=== PATIENT | male | born 1985 | race Caucasian/White ===

== ENCOUNTER 2019-12-07 17:09 | Emergency (ER) | payer OTHER, SELFPAY ==
--- NOTE | ~2019-12-07 | XR_ITS ---
EXAMINATION: XR foot RT min 3V EXAM DATE: 12/07/2019 18:18 INDICATION: Initial encounter following injury, with pain of the right foot, great toe. TECHNIQUE: Right foot dorsoplantar, lateral and oblique projections obtained and reviewed. There is no prior study for comparison. FINDINGS: Right metatarsal bones unremarkable. There are no acute fractures or dislocations identifi ed. There is no subcutaneous gas. The soft tissue is unremarkable. There are no radiopaque foreig n bodies. IMPRESSION: 1. XR foot RT min 3V exam without acute osseous findings. Reviewed, dictated and finalized at location A.
--- NOTE | ~2019-12-07 | XR_ITS ---
EXAMINATION: XR foot LT min 3V EXAM DATE: 12/07/2019 18:17 INDICATION: Initial encounter following injury, with pain of the left foot. TECHNIQUE: Left foot dorsoplantar, lateral and oblique projections obtained and reviewed. There is n o prior study for comparison. FINDINGS: Left metatarsal bones unremarkable. There are no acute fractures or dislocations identifi ed. There is no subcutaneous gas. The soft tissue is unremarkable. There are no radiopaque foreig n bodies. IMPRESSION: 1. XR foot LT min 3V exam without acute osseous findings. Reviewed, dictated and finalized at location A.
[2019-12-07 17:26] VITALS: BP 127/68; PULSE 100; RESP 16; TEMP 37.1; O2SAT 100
[2019-12-07 18:01] LABS: Glucose Point of Care 75 (65-105)
[2019-12-07 18:01] LABS: Glucose Point of Care 41 (65-105)
--- NOTE | 2019-12-07 19:03 | PC.NURSE ---
pt has had 3 pepsis, turkey sandwich and multiple bags of chips since arrival.
[2019-12-07 20:05] VITALS: BP 130/72; PULSE 98; RESP 18; O2SAT 100
[2019-12-07 20:05] LABS: Glucose Point of Care 174 (65-105)
--- NOTE | 2019-12-07 21:27 | ED.LOWEXIN ---
HPI - Extremity Injury (Lower) General Chief Complaint: Extremity Injury, Lower Stated Complaint: left foot injury Time Seen by Provider: 12/07/19 17:28 Source: patient Mode of arrival: ambulatory Limitations: no limitations History of Present Illness HPI Narrative: This is a 33 year old male that presents to the ER for bilateral foot pain x 2 days. Reports he had a large log fall on both of the feet. Reports since he has had swelling and pain in the feet. Also reports pain and bruising of the right first toenail. Also reports he thinks his blood sugar may be low. He took his insulin today and has not eaten anything in a while. Denies fever, decreased ROM or numbness. Related Data Allergies Allergy/AdvReac Type Severity Reaction Status Date / Time ibuprofen Allergy Severe Rash Verified 12/07/19 19:04 Penicillins Allergy Severe Hives Verified 12/07/19 19:03 Review of Systems Review of Systems: Narrative: CONSTITUTIONAL: Denies fever SKIN: Reports redness MUSCULOSKELETAL: Reports joint pain, and myalgia. NEUROLOGIC: Denies numbness All systems reviewed & are unremarkable except as noted in HPI and below PMFSH Past Medical History Medical History (Updated 12/07/19 @ 21:39 by Felecia Branch PA-C) History of diabetes mellitus Social History Social History (Updated 12/07/19 @ 21:32 by Felecia Branch PA-C) Substance use: never Exam Narrative: Exam Narrative: GENERAL: Well-appearing, well-nourished, and in no acute distress. HEAD: Normocephalic, atraumatic. EYES: EOMI. EXTREMITIES: Normal range of motion. Mild edema to dorsal surface of bilateral feet. Right great toe with mild subungual hematoma with mild redness to the lateral nail fold. Normal DP pulses. Normal sensation SKIN: Warm, dry, no rash. NEURO: No focal deficits. Alert and oriented x3. PSYCH: Normal mood and affect Course Vital Signs Vital signs: Vital Signs Temperature 98.7 F 12/07/19 17:26 Pulse Rate 100 12/07/19 17:26 Respiratory Rate 16 12/07/19 17:26 Blood Pressure 127/68 12/07/19 17:26 Pulse Oximetry 100 12/07/19 17:26 Temperature 98.7 F 12/07/19 17:26 Pulse Rate 98 12/07/19 20:05 Respiratory Rate 18 12/07/19 20:05 Blood Pressure 130/72 12/07/19 20:05 Pulse Oximetry 100 12/07/19 20:05 Procedures Abscess I/D foot: Date of Incision: 12/07/19 Time of Incision: 21:38 Side (if applicable): right Local Anesthetic: none (patient refused) Technique: incised with #11 blade I&D Results: Blood MDM - Extremity Injury (Lower) MDM Narrative Medical decision making narrative: Patient presents to the emergency department for bilateral foot pain after an injury 2 days ago. Bilateral foot x-rays are without acute osseous findings. Will be given postop shoes and crutches for comfort. Patient also reported he was feeling like his blood sugar was low, he had not had anything to eat. Initial blood glucose was 41, patient was fed with improvement. Most recent blood sugar 174. Patient also had a subungual hematoma of the first toe on the right foot. Mild amount of redness to the area. Attempted at incision with only blood resulting, no pus. Patient instructed to do warm soapy soaks and will be started on oral antibiotics. He is stable and felt appropriate for further outpatient evaluation. He was given warnings to return to the ER Lab Data Attestation: I reviewed the patient's lab results. Labs: Lab Results 12/07/19 12/07/19 12/07/19 Range/Units 17:23 18:00 20:03 POC Capillary Glucose 41 L* 75 174 H (65-105) mg/dl Imaging Data Radiologist's impression: ITS Impressions Foot X-Ray 12/07/19 18:26 IMPRESSION: 1. XR foot LT min 3V exam without acute osseous findings. Foot X-Ray 12/07/19 18:27 IMPRESSION: 1. XR foot RT min 3V exam without acute osseous findings. Critical Care Time Critical Care Time Critical Care Time:
[2019-12-07 21:57] VITALS: BP 128/71; PULSE 99; RESP 23; O2SAT 100
== END 2019-12-07 21:58 | disposition home or self-care (01) ==
PROVIDERS: Emergency Provider Emergency Medicine
DX: L03.031 Cellulitis of right toe (principal); S90.211A Contusion of right great toe with damage to nail, initial encounter; M79.672 Pain in left foot; E11.9 Type 2 diabetes mellitus without complications; W20.8XXA Other cause of strike by thrown, projected or falling object, initial encounter
CPT/HCPCS: 73630; 82948; 99284; A9270

== ENCOUNTER 2019-12-10 15:15 | Emergency (ER) | payer OTHER, SELFPAY ==
[2019-12-10 15:33] VITALS: BP 137/63; PULSE 69; RESP 14; TEMP 36.8; O2SAT 99
[2019-12-10 15:39] LABS: Glucose Point of Care 306 (65-105)
--- NOTE | 2019-12-10 15:53 | ED.LOWEXIN ---
HPI - Extremity Injury (Lower) General Chief Complaint: Extremity Injury, Lower Stated Complaint: feet pain,poison bobbi Time Seen by Provider: 12/10/19 15:54 Source: patient Mode of arrival: wheelchair Limitations: no limitations History of Present Illness HPI Narrative: 33-year-old man with type 1 diabetes comes in today complaining of redness and swelling of his feet bilaterally, itching and rash on his feet and hands, and pain in his right foot. Patient states that about 5 days ago he was cutting wood for a Bon fire and the log rolled over on his feet. He states that he was seen 2 days later and the emergency department where they gave him antibiotics after x-ray in his legs. he has since had some bloody drainage from under his right great toenail. The rash arose afterwards. He thinks he might have gotten into some poison bobbi. He denies fever, nausea, vomiting, trouble breathing, lightheadedness or chest pain. MD complaint: foot injury Onset (ago): day(s) (5) Injury: Right: foot Type of Injury: blunt Place: home Severity: moderate Relieving factors: nothing Exacerbating factors: weight bearing, movement and palpation Context: direct blow Associated symptoms: swelling and able to partially bear weight Related Data Home Medications Medication Instructions Recorded Confirmed insulin lispro [Humalog U-100 See Rx Instructions .ROUTE .COMPLEX 12/10/19 12/10/19 Insulin] Allergies Allergy/AdvReac Type Severity Reaction Status Date / Time ibuprofen Allergy Severe Rash Verified 12/07/19 19:04 Penicillins Allergy Severe Hives Verified 12/07/19 19:03 codeine Allergy Unknown Unknown Verified 12/10/19 15:46 Review of Systems Constitutional: Constitutional: Denies chills, Denies fever(s) and Denies weakness Eyes: Eyes: Denies change in vision and Denies photophobia ENT: Denies dysphagia, Denies nasal congestion and Denies sore throat Cardiovascular: Cardiovascular: Denies chest pain and Denies radiating jaw, neck or arm pain Respiratory: Respiratory: Denies cough, Denies dyspnea and Denies wheezing Gastrointestinal: Gastrointestinal: Denies abdominal pain, Denies diarrhea, Denies nausea and Denies vomiting Genitourinary: Genitourinary: Denies dysuria and Denies urinary frequency Musculoskeletal: Musculoskeletal: Reports as per HPI, Denies back pain, Reports arthralgias and Reports joint swelling Integumentary/Breasts: Skin/Breast: Reports as per HPI, Reports pruritus and Reports rash Neurologic: Denies vertigo, Denies dizziness and Denies syncope Hematologic/Lymphatic: Hematologic/Lymphatic: Denies easy bleeding and Denies easy bruising Allergic/Immunologic: Allergic/Immunologic: Denies lip swelling and Denies wheezing PMFSH Past Medical History Medical History History of diabetes mellitus Social History Social History Smoking status: Never smoker Alcohol intake: never Substance use: never Living arrangements: with family Exam Const: General: healthy appearing and alert Orientation/consciousness: patient oriented x3 Limitations: no limitations Other: gndf-io-vaouliao acute distress. HENMT: Head: normal to inspection Face and sinus: normal facial exam Mouth: Yes moist mucous membranes Throat: posterior oropharynx normal Eyes: Conjunctivae: conjunctivae normal Pupils: Equal, round and reactive pupils present EOM: EOMs intact bilaterally Neck: Neck: normal visual inspection and no lymphadenopathy Resp: Effort & Inspection: normal respiratory effort and not labored Auscultation: clear to auscultation bilaterally, no rales, no rhonchi and no wheezes Cardio: Rate: regular rate Rhythm: regular rhythm Heart sounds: no murmurs GI: Inspection: non-distended GI Palp: Yes Soft to palpation and No Tenderness to palpation present (GI) Skin: General skin exam: normal color Other:
[2019-12-10 16:39] LABS: Basophils Absolute Auto 0.04 K/mm3 (0.00-0.10); Basophils Percent Auto 0.6 % (0.0-1.0); Eosinophils Absolute Auto 0.29 K/mm3 (0.02-0.50); Eosinophils Percent Auto 4.6 % (1.0-6.0); Hematocrit 35.7 % (40.0-54.0); Hemoglobin 11.9 g/dL (14.0-18.0); Immature Granulocyte Absolute 0.01 K/mm3 (0.00-0.00); Immature Granulocyte Percent A 0.2 % (0.0-0.0); Lymphocytes Absolute Auto 1.74 K/mm3 (1.10-4.50); Lymphocytes Percent Auto 27.6 % (18.0-42.0); Mean Corpuscular HGB Conc 33.3 g/dL (32.0-36.0); Mean Corpuscular Hemoglobin 29.7 pg (27.0-31.0); Mean Platelet Volume 10.5 fl (8.7-11.0); Monocytes Absolute Auto 0.46 K/mm3 (0.10-0.90); Monocytes Percent Auto 7.3 % (2.0-11.0); Neutrophils Absolute Auto 3.8 K/mm3 (1.7-7.2); Neutrophils Percent Auto 59.7 % (50.0-70.0); Platelet Count Result 299 K/mm3 (150-420); Red Blood Count 4.01 M/mm3 (4.70-6.10); White Blood Count 6.3 K/mm3 (4.8-10.8)
[2019-12-10] MEDS: MORPHINE SULFATE 4 MG/ML INJ IV PUSH (16:40)
[2019-12-10] MEDS: ONDANSETRON INJ 4 MG/2 ML VIAL IV PUSH (16:40)
[2019-12-10] MEDS: SODIUM CHLORIDE 0.9% IV 1,000 ML 999 ML IV CONT (16:40)
[2019-12-10 16:53] LABS: Alanine Aminotransferase 22 U/L (16-63); Albumin Level 3.2 g/dL (3.4-5.0); Alkaline Phosphatase 81 U/L (46-116); Anion Gap 6 mmol/L (8-16); Aspartate Amino Transferase 12 U/L (15-37); Bilirubin,Total 0.2 mg/dL (0.00-1.00); Blood Urea Nitrogen 9 mg/dL (7-18); CRP 1.8 mg/dL (0.0-0.9); Calcium 8.3 mg/dL (8.5-10.1); Carbon Dioxide 28 mmol/L (21-32); Chloride 107 mmol/L (98-108); Estimated CRCL calculation 114 ml/min; Estimated Glomerular Filt Rate > 60; Glucose 142 mg/dL (70-99); Osmolality Calculated 292 mOsm/kg (285-295); Potassium 3.5 mmol/L (3.5-5.1); Sodium 141 mmol/L (136-145); Total Protein 6.5 g/dL (6.4-8.2)
[2019-12-10 17:03] VITALS: BP 112/58; PULSE 62; RESP 16; O2SAT 96
[2019-12-10 17:07] LABS: Lactic Acid Reflex 2.1 mmol/L (0.4-2.0)
[2019-12-10 17:25] LABS: Partial Thromboplastin Time 29.8 SEC (22.3-31.6)
[2019-12-10] MEDS: predniSONE 20 MG TABLET 60 MG PO (17:55)
--- NOTE | 2019-12-10 18:06 | PC.NURSE ---
Pt requesting medications be sent to [facility] because he will not have a ride tomorrow to get medications filled.
[2019-12-10 19:35] LABS: Reflex Lactic Acid Yes or No Add Lactic
== END 2019-12-10 18:52 | disposition home or self-care (01) ==
PROVIDERS: Emergency Provider Emergency Medicine
DX: S90.221A Contusion of right lesser toe(s) with damage to nail, initial encounter (principal); L25.5 Unspecified contact dermatitis due to plants, except food; W22.8XXA Striking against or struck by other objects, initial encounter
CPT/HCPCS: 36415; 80053; 83605; 85025; 85610; 85730; 86140; 87040; 96361; 96374; 96375; 99283; 99284; J2270; J2405; J7030; J7512

== ENCOUNTER 2020-11-07 19:06 | Emergency (ER) | payer OTHER, SELFPAY ==
[2020-11-07 20:15] VITALS: PULSE 90; RESP 18; TEMP 37.7
[2020-11-07 20:37] LABS: Basophils Absolute Auto 0.11 K/mm3 (0.00-0.10); Basophils Percent Auto 0.9 % (0.0-1.0); Eosinophils Absolute Auto 0.23 K/mm3 (0.02-0.50); Hematocrit 45.5 % (40.0-54.0); Hemoglobin 15.1 g/dL (14.0-18.0); Immature Granulocyte Absolute 0.04 K/mm3 (0.00-0.00); Immature Granulocyte Percent A 0.3 % (0.0-0.0); Lymphocytes Absolute Auto 2.64 K/mm3 (1.10-4.50); Lymphocytes Percent Auto 22.5 % (18.0-42.0); Mean Corpuscular HGB Conc 33.2 g/dL (32.0-36.0); Mean Corpuscular Hemoglobin 29.8 pg (27.0-31.0); Mean Corpuscular Volume 89.7 fL (78.0-102.0); Mean Platelet Volume 10.2 fl (8.7-11.0); Monocytes Absolute Auto 0.76 K/mm3 (0.10-0.90); Monocytes Percent Auto 6.5 % (2.0-11.0); Neutrophils Percent Auto 67.8 % (50.0-70.0); Platelet Count Result 435 K/mm3 (150-420); Red Blood Count 5.07 M/mm3 (4.70-6.10); Red Cell Distribution Width 12.1 % (11.6-14.4); White Blood Count 11.8 K/mm3 (4.8-10.8)
[2020-11-07 20:49] LABS: Alanine Aminotransferase 25 U/L (16-63); Albumin Level 4.1 g/dL (3.4-5.0); Alkaline Phosphatase 115 U/L (46-116); Anion Gap 12 mmol/L (8-16); Aspartate Amino Transferase 10 U/L (15-37); Bilirubin,Total 0.2 mg/dL (0.00-1.00); Blood Urea Nitrogen 14 mg/dL (7-18); Calcium 9.5 mg/dL (8.5-10.1); Carbon Dioxide 26 mmol/L (21-32); Chloride 104 mmol/L (98-108); Estimated CRCL calculation 77 ml/min; Estimated Glomerular Filt Rate > 60; Glucose 181 mg/dL (70-99); Osmolality Calculated 299 mOsm/kg (285-295); Potassium 4.2 mmol/L (3.5-5.1); Sodium 142 mmol/L (136-145); Total Protein 8.2 g/dL (6.4-8.2)
[2020-11-07 22:00] VITALS: BP 133/74; PULSE 80; RESP 20; TEMP 36.2; O2SAT 98
--- NOTE | 2020-11-07 22:07 | PC.NURSE ---
Pt brought from [facility] to ER Rm 1, VSS. ERP in to speak c pt.
[2020-11-07] MEDS: cefTRIAXone 1 GM VIAL IM (22:15)
[2020-11-07] MEDS: HYDROcodone/acetaminophen (*CRX) 5-325 MG TABLET 1 TAB PO (22:15)
--- NOTE | 2020-11-07 22:15 | ED.WOUNDLAC ---
HPI - Wound/Laceration General Chief Complaint: Wound/Laceration Stated Complaint: possible spider bite Time Seen by Provider: 11/07/20 20:30 Source: patient and RN notes reviewed Mode of arrival: ambulatory Limitations: no limitations History of Present Illness Onset (ago): day(s) (5) Extremity Location: Right: forearm Place: home Patient tetanus UTD: Yes Context: accidental Associated symptoms: pain Treatments prior to arrival: bandage and other (Bactrim DS x 5 days.) Related Data Home Medications Medication Instructions Recorded Confirmed insulin lispro [Humalog U-100 See Rx Instructions .ROUTE .COMPLEX 12/10/19 11/07/20 Insulin] albuterol sulfate 2 puff INHALATION PRN 11/07/20 11/07/20 atorvastatin 10 mg PO DAILY 11/07/20 11/07/20 Allergies Allergy/AdvReac Type Severity Reaction Status Date / Time ibuprofen Allergy Severe Rash Verified 12/07/19 19:04 Penicillins Allergy Severe Hives Verified 12/07/19 19:03 codeine Allergy Unknown Unknown Verified 12/10/19 15:46 Review of Systems Review of Systems: ROS unobtainable: Yes unobtainable due to endotracheal tube Constitutional: Constitutional: Reports as per HPI and Reports no additional constitutional complaints Eyes: Eyes: Reports as per HPI and Reports no additional eye complaints ENT: Reports system reviewed and no additional complaints, except as documented and Reports as per HPI Cardiovascular: Cardiovascular: Reports as per HPI and Reports no additional cardiovascular complaints Respiratory: Respiratory: Reports as per HPI and Reports no additional respiratory complaints Gastrointestinal: Gastrointestinal: Reports as per HPI and Reports no additional gastrointestinal complaints Genitourinary: Genitourinary: Reports no additional male genitourinary complaints and Reports as per HPI Musculoskeletal: Musculoskeletal: Reports no additional musculoskeletal complaints and Reports as per HPI Comments: spider bite of medial right forearm Integumentary/Breasts: Skin/Breast: Reports system reviewed and no additional complaints, except as docu and Reports as per HPI Neurologic: Reports system reviewed and no additional complaints, except as documented and Reports as per HPI Psychiatric: Psychiatric: Reports no additional psychiatric complaints and Reports as per HPI Endocrine: Endocrine: Reports no additional endocrine complaints and Reports as per HPI Hematologic/Lymphatic: Hematologic/Lymphatic: Reports no additional hematologic/lymphatic complaints and Reports as per HPI Allergic/Immunologic: Allergic/Immunologic: Reports no additional allergic/immunologic complaints and Reports as per HPI PMFSH Past Medical History Medical History Cellulitis History of diabetes mellitus Social History Social History Smoking status: Never smoker Alcohol intake: never Substance use: never Exam Const: General: healthy appearing, no acute distress and alert Orientation/consciousness: patient oriented x3 HENMT: Head: normal to inspection Ears: external ears normal and TM's normal bilaterally General nose exam: Normal external nose present and Normal nares present Eyes: Conjunctivae: conjunctivae normal Pupils: Equal, round and reactive pupils present EOM: EOMs intact bilaterally Neck: Neck: normal visual inspection and no lymphadenopathy Chest: Chest palpation & inspection: normal inspection of the chest Resp: Effort & Inspection: normal respiratory effort Auscultation: clear to auscultation bilaterally Cardio: Rate: regular rate Rhythm: regular rhythm GI: GI Palp: Yes Soft to palpation Percussion: Yes normal to percussion Auscultation: normal bowel sounds Back/Spine/Pelvis: Back: no CVA tenderness Skin: General skin exam: normal color Neuro: General: patient oriented x3, moves all extremities, no meningeal signs and CN's II-XI in
[2020-11-07] MEDS: LIDOCAINE HCL 1% LOCAL INJ 20 ML VIAL (22:28)
[2020-11-07 22:33] VITALS: BP 122/74; PULSE 87; RESP 20; TEMP 36.8; O2SAT 99
== END 2020-11-07 22:34 | disposition home or self-care (01) ==
PROVIDERS: Emergency Provider Emergency Medicine
DX: L98.9 Disorder of the skin and subcutaneous tissue, unspecified (principal); L03.90 Cellulitis, unspecified; W57.XXXA Bitten or stung by nonvenomous insect and other nonvenomous arthropods, initial encounter
CPT/HCPCS: 36415; 80053; 85025; 87040; 96372; 99283; A9270; J0696

== ENCOUNTER 2021-02-08 08:32 | Emergency (ER) | payer OTHER, SELFPAY ==
[2021-02-08 08:45] VITALS: BP 117/98; PULSE 86; RESP 18; TEMP 37.1; O2SAT 98
[2021-02-08] MEDS: traMADol HCL (*CRX) 50 MG TABLET PO (09:47)
[2021-02-08] MEDS: LIDOCAINE HCL 1% LOCAL INJ 20 ML VIAL (09:50)
--- NOTE | 2021-02-08 10:11 | ED.EXTPRO ---
HPI - Extremity Problem General Chief complaint: Extremity Problem,Nontraumatic Stated complaint: BITE ON FINGER NEED RING CUT OFF Source: patient Mode of arrival: ambulatory History of Present Illness HPI Narrative: this is a 35-year-old male presents with some swollen right ring finger, after apparent spider bite with some redness has a ring on the finger that is the patient is unable to remove, and patient is up-to-date with his tetanus vaccine, the area of the right ring finger is swollen painful and tender to touch and unable to remove the ring on his own. Currently no fever or chills no drainage from the wound site. Complaint: extremity pain Onset (ago): hour(s) Pain Consistency: constant Location: right and upper extremity Severity scale (1-10): 8 Quality: aching Radiation: none Relieving factors: cold therapy and immobilization Exacerbating factors: range of motion Related Data Home Medications Medication Instructions Recorded Confirmed insulin lispro [Humalog U-100 See Rx Instructions .ROUTE .COMPLEX 12/10/19 11/07/20 Insulin] albuterol sulfate 2 puff INHALATION PRN 11/07/20 11/07/20 atorvastatin 10 mg PO DAILY 11/07/20 11/07/20 Allergies Allergy/AdvReac Type Severity Reaction Status Date / Time ibuprofen Allergy Severe Rash Verified 12/07/19 19:04 Penicillins Allergy Severe Hives Verified 12/07/19 19:03 codeine Allergy Unknown Unknown Verified 12/10/19 15:46 Review of Systems Review of Systems: All systems reviewed & are unremarkable except as noted in HPI and below PMFSH Past Medical History Medical History Cellulitis History of diabetes mellitus Social History Social History Smoking status: Never smoker Alcohol intake: never Substance use: never Exam Const: General: no acute distress and alert Orientation/consciousness: patient oriented x3 HENMT: Head: normal to inspection Eyes: Conjunctivae: conjunctivae normal Pupils: Equal, round and reactive pupils present Neck: Neck: normal visual inspection, no lymphadenopathy and no meningeal signs Chest: Chest palpation & inspection: normal inspection of the chest Resp: Effort & Inspection: normal respiratory effort Auscultation: clear to auscultation bilaterally Cardio: Rate: regular rate Rhythm: regular rhythm GI: GI Palp: Yes Soft to palpation Percussion: Yes normal to percussion Back/Spine/Pelvis: Back: no CVA tenderness Skin: Other: Right ring finger swollen and attempted to remove her ring on unable to do so manually. Neuro: General: patient oriented x3 Extrem: General: normal to inspection and no pedal edema Psych: Mental Status: mental status grossly normal Course Course Emergency Course: Used a ring cutter to remove to remove a ring from his right finger eventually cut through, and was able to remove the the ring from his finger, the area is swollen, we used a nerve block to numb the area ice to affected area the patient did receive p.o. tramadol. With a spider bite and swollen finger the patient is up-to-date with his tetanus, but will prescribe Bactrim p.o. that will be sent to his pharmacy. The area was tender and swollen the patient tolerated the procedure but did have quite a bit of discomfort and pain while trying to remove the the ring from his finger. Vital Signs Vital signs: Vital Signs Temperature 37.1 C 02/08/21 08:45 Pulse Rate 86 02/08/21 08:45 Respiratory Rate 18 02/08/21 08:45 Blood Pressure 117/98 H 02/08/21 08:45 Pulse Oximetry 98 02/08/21 08:45 Temperature 37.1 C 02/08/21 08:45 Pulse Rate 86 02/08/21 08:45 Respiratory Rate 18 02/08/21 08:45 Blood Pressure 117/98 H 02/08/21 08:45 Pulse Oximetry 98 02/08/21 08:45 Procedures Foreign Body Removal Foreign Body #1: Foreign Body Removal Date: 02/08/21 Foreign Body Removal Time:
== END 2021-02-08 10:26 | disposition home or self-care (01) ==
PROVIDERS: Emergency Provider Emergency Medicine
DX: L03.011 Cellulitis of right finger (principal)
CPT/HCPCS: 99283; A9270

== ENCOUNTER 2021-03-06 20:28 | Emergency (ER) | payer OTHER, SELFPAY ==
--- NOTE | ~2021-03-06 | XR_ITS ---
EXAMINATION: XR chest 1V portable EXAM DATE: 03/06/2021 21:59 INDICATION: Cough, sternal chest pain. History hypertension. TECHNIQUE: Frontal and lateral projections of the chest obtained and reviewed. Comparison is made to prior examination from 08/21/2018. FINDINGS: Right-sided chondral cartilage calcification. The lungs are clear. There are no pleural e ffusions. The cardiomediastinal silhouette is within normal limits. There is no pneumothorax suspec talia. The bones and soft tissues are unremarkable. IMPRESSION: No acute cardiopulmonary findings. Reviewed, dictated and finalized at location G. [employer]ICE
[2021-03-06 20:32] VITALS: BP 131/84; PULSE 97; RESP 16; TEMP 36.4; O2SAT 98
--- NOTE | 2021-03-06 21:12 | ED.RECABL ---
HPI - Recheck/Abnormal Lab/Rx General Chief Complaint: Recheck/Abnormal Lab/Rx Stated Complaint: elevated blood sugar 311 Time Seen by Provider: 03/06/21 21:12 Source: patient Mode of arrival: ambulatory Limitations: no limitations History of Present Illness HPI narrative: The patient is a 35 yo male with a history of TYpe I DM, Asthma, HTN, migraine headache, presenting for evaluation of elevated glucose and recent migraine headache which began yesterday. Pt states yesterday had a headache which which was frontal without thunderclap sensation. No neck pain vision changes, focal weakness or numbness. Pt has been nauseated and vomiting today. Pt with neurologist that manages his migraine headaches, but denies taking any prophylactic migraine medications and states this seems similar to previous episodes of migraine headaches. Pt denies current severe pain. Pt denies neck pain. Patient reports his glucose was elevated today, in the 300s. Reports he does use his insulin when he is supposed to. Reports he is not on any long acting insulin. States he used 1 unit of insulin per 15 g of carbohydrate. Pt reports chills, but denies fever. He reports cough as well. Pt son is recent sick contact. He is not vaccinated for COVID. No known history of COVID infection. Denies dyspnea or chest pain. Patient reports spider bites all over his entire body and now with left knee pain and swelling. Pt reports he had some draining from his left knee. Patient was started on Clindamycin for this by his PCP. Pt denies redness or swelling. It is mildly tender but he has been ambulatory without difficulty. No difficulty with bending this extremity. Related Data Home Medications Medication Instructions Recorded Confirmed insulin lispro [Humalog U-100 See Rx Instructions .ROUTE .COMPLEX 12/10/19 11/07/20 Insulin] albuterol sulfate 2 puff INHALATION PRN 11/07/20 11/07/20 atorvastatin 10 mg PO DAILY 11/07/20 11/07/20 Allergies Allergy/AdvReac Type Severity Reaction Status Date / Time ibuprofen Allergy Severe Rash Verified 12/07/19 19:04 Penicillins Allergy Severe Hives Verified 12/07/19 19:03 codeine Allergy Unknown Unknown Verified 12/10/19 15:46 Review of Systems Review of Systems: CONSTITUTIONAL: Denies fever,reports chills without diaphoresis EYES: Denies visual changes, redness, or discharge. ENT:Reports rhinorrhea and congestion CARDIOVASCULAR: Denies chest pain, palpitations, or edema. RESPIRATORY: Reports cough without dyspnea GASTROINTESTINAL: Denies abdominal pain, pt has been nauseated with three episodes of vomiting GENITOURINARY: Denies dysuria or hematuria. SKIN: Denies rash or itching. MUSCULOSKELETAL: Denies back pain, reports mild left knee pain, report healing wound NEUROLOGIC:Reports mild headache, without focal numbness, or weakness. He does report peripheral neuropathy in his hands which has been present for 16 years. FORMERLY [facility], [facility] Past Medical History Medical History Cellulitis History of diabetes mellitus Social History Social History Smoking status: Never smoker Alcohol intake: never Substance use: never Exam Narrative: GENERAL: Awake, alert, conversant HEAD: Normocephalic, atraumatic. EYES: PERRLA and EOMI. ENT: Nares clear, no rhinorrhea or epistaxis. Mucous membranes moist. NECK: Supple. CHEST: No respiratory distress, breathing even and non labored HEART: Regular rate, sinus rhythm ABDOMEN:Non distended, non tender EXTREMITIES: Normal range of motion. No edema. Abrasion over left knee. Intact flexion and extension. No pain with movement. No edema or induration. SKIN: Warm, dry, no rash. NEURO:No focal deficits. Alert and oriented x3. Finger to nose intact bilaterally. EOMs intact without nystagmus. No facial droop/asymmetry noted bilaterally. Grimace intact. Intact sensation in face. Hearing intact bila
--- NOTE | 2021-03-06 21:13 | PC.NURSE ---
per ems crew, pt has insulin for elevated blood sugar but refuses to take it stating that he doesn't know when his next meal will be and doesn't want to bottom out
[2021-03-06 22:02] LABS: Glucose Point of Care 404 mg/dl (65-105)
== END 2021-03-06 22:38 | disposition home or self-care (01) ==
LOC: ANHED 21:32
PROVIDERS: Emergency Provider Emergency Medicine
DX: E10.65 Type 1 diabetes mellitus with hyperglycemia (principal); J45.909 Unspecified asthma, uncomplicated; I10 Essential (primary) hypertension; Z79.4 Long term (current) use of insulin
CPT/HCPCS: 71045; 82948; 99283

== ENCOUNTER 2021-03-09 11:26 | Emergency (ER) | payer OTHER, SELFPAY ==
--- NOTE | 2021-03-09 11:35 | PC.NURSE ---
pt left from ems cot. refuses treatment. states he is better and does not need to be seen
== END 2021-03-09 11:28 | disposition left against medical advice (07) ==
PROVIDERS: Emergency Provider Emergency Medicine
DX: Z04.9 Encounter for examination and observation for unspecified reason (principal)
CPT/HCPCS: 99199

== ENCOUNTER 2021-05-28 15:21 | Emergency (ER) | payer OTHER, SELFPAY ==
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
[2021-05-28 15:42] VITALS: BP 150/83; PULSE 85; RESP 16; TEMP 36.3; O2SAT 97
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
[2021-05-28] MEDS: KETOROLAC (*BKC) 60 MG/2 ML VIAL IM (16:00)
[2021-05-28 16:33] VITALS: BP 134/77; PULSE 97; RESP 16; TEMP 36.9; O2SAT 97
== END 2021-05-28 16:36 | disposition home or self-care (01) ==
PROVIDERS: Emergency Provider Emergency Medicine
DX: S46.011A Strain of muscle(s) and tendon(s) of the rotator cuff of right shoulder, initial encounter (principal); V89.2XXA Person injured in unspecified motor-vehicle accident, traffic, initial encounter
CPT/HCPCS: 73030; 96372; 99283; J1885

== ENCOUNTER 2021-06-03 02:59 | Emergency (ER) | payer SELFPAY ==
[2021-06-03 03:02] VITALS: BP 144/88; PULSE 107; RESP 16; TEMP 36.6; O2SAT 100
--- NOTE | 2021-06-03 03:04 | ED.SKABFB ---
HPI - Skin/Abscess/Foreign Bdy General Chief complaint: Skin/Abscess/Foreign Body Stated complaint: pain Time Seen by Provider: 06/03/21 03:04 Source: patient Mode of arrival: ambulatory Limitations: no limitations History of Present Illness HPI narrative: 35-year-old man with a history of diabetes comes in today complaining of pain and swelling and his perianal area where he has had recurrent abscesses. Patient states that the pain is on the right. He has had no drainage, fever, vomiting or abdominal pain. He has had it lanced several times before. complaint: abscess/boil Onset (ago): day(s) (1) Tetanus up to date: unsure Location: buttocks Severity: severe Quality: burning and sharp Pain Consistency: constant Relieving factors: none Exacerbating factors: palpation, movement and other (BM) Context: other (Similar prior episodes) Associated symptoms: denies other symptoms Treatments prior to arrival: none Related Data Home Medications Medication Instructions Recorded Confirmed albuterol sulfate 90 mcg INHALATION PRN PRN 06/03/21 06/03/21 cyclobenzaprine 10 mg PO PRN PRN 06/03/21 06/03/21 insulin lispro [Humalog KwikPen 100 unit SUBCUT DAILY 06/03/21 06/03/21 Insulin] tramadol 50 mg PO DAILY PRN 06/03/21 06/03/21 Allergies Allergy/AdvReac Type Severity Reaction Status Date / Time codeine Allergy Unknown Verified 06/03/21 03:21 Penicillins Allergy Unknown Verified 06/03/21 03:21 Review of Systems Constitutional: Constitutional: Denies chills and Denies fever(s) Gastrointestinal: Gastrointestinal: Denies abdominal pain, Denies diarrhea, Denies nausea and Denies vomiting Integumentary/Breasts: Skin/Breast: Denies pruritus, Reports erythema and Denies rash PMF Past Medical History Medical History (Updated 06/03/21 @ 03:41 by Alexi Garnica MD) Type 1 diabetes Social History Social History (Updated 06/03/21 @ 03:33 by Alexi Garnica MD) Smoking status: Current every day smoker Alcohol intake: never Substance use: never Exam Const: General: alert Orientation/consciousness: patient oriented x3 Other: [id number] acute distress. Eyes: Conjunctivae: conjunctivae normal Pupils: Equal, round and reactive pupils present EOM: EOMs intact bilaterally Resp: Effort & Inspection: normal respiratory effort and not labored Auscultation: clear to auscultation bilaterally, no rales, no rhonchi and no wheezes Cardio: Rate: regular rate Rhythm: regular rhythm Heart sounds: no murmurs GI: GI Palp: Yes Soft to palpation and No Tenderness to palpation present (GI) Other: There is a scar causing a radial skin fold at the 4 o'clock region (left) of the perianal area. It is the skin adjacent to the scar which is erythematous and firm. There is no drainage, fluctuance or mass. Skin: General skin exam: normal color, no jaundice and no pallor Rashes: no rashes Neuro: General: patient oriented x3, moves all extremities, no focal motor deficits and CN's II-XI intact bilaterally Speech: normal speech Extrem: General: normal to inspection and no clubbing, cyanosis or edema Psych: Appearance: grossly normal and well kempt Mental Status: mental status grossly normal Affect: normal affect Attitude: cooperative Thought content: Yes Normal thought content present Procedures Abscess I/D mikael-rectal: Date of Incision: 06/03/21 Time of Incision: 03:15 Side (if applicable): left Technique: incised with #11 blade Amount of fluid expressed (mL): 2 Irrigation: No Packing used?: none I&D Results: Blood Complications: pain Abcess I&D Additional Comments: Area was cleaned 3 times with Betadine. Patient refused to allow injection of local anesthesia and asked for me to directly incise the wound. Stab wound with a 11 blade was performed. Very little if any pus was obtained. No culture was sent. Discharge Plan Discharge Clinical Imp
[2021-06-03 03:20] LABS: Glucose Point of Care 90 mg/dl (65-105)
[2021-06-03] MEDS: LIDOCAINE HCL 1% LOCAL INJ 20 ML VIAL 10 ML INFILTRATE (03:22)
[2021-06-03] MEDS: HYDROcodone/acetaminophen (*CRX) 5-325 MG TABLET 1 TAB PO (03:22)
[2021-06-03] MEDS: metroNIDAZOLE 250 MG TABLET 500 MG PO (03:37)
[2021-06-03] MEDS: CIPROFLOXACIN 500 MG TAB PO (03:37)
[2021-06-03 03:52] VITALS: BP 120/88; PULSE 88; RESP 18; TEMP 36.6; O2SAT 99
== END 2021-06-03 03:53 | disposition home or self-care (01) ==
PROVIDERS: Emergency Provider Emergency Medicine
DX: K61.1 Rectal abscess (principal); E10.9 Type 1 diabetes mellitus without complications
CPT/HCPCS: 46040; 82948; 99283; A9270

== ENCOUNTER 2021-07-13 22:55 | Emergency (ER) | payer OTHER, SELFPAY ==
--- NOTE | 2021-07-13 23:04 | ED.SKABFB ---
HPI - Skin/Abscess/Foreign Bdy General Chief complaint: Extremity Problem,Nontraumatic Stated complaint: LT FOOT PAIN Time Seen by Provider: 07/13/21 23:04 Source: patient and RN notes reviewed Mode of arrival: ambulatory Limitations: no limitations History of Present Illness complaint: other ( Redness and pain left 4th toe and right great toe) Onset (ago): day(s) (2) Location: L foot and R foot ( great toe) Severity: moderate Quality: aching, dull and constant Pain Consistency: constant Relieving factors: none Exacerbating factors: none Associated symptoms: denies other symptoms Treatments prior to arrival: none Related Data Home Medications Medication Instructions Recorded Confirmed insulin lispro [Humalog U-100 See Rx Instructions .ROUTE .COMPLEX 12/10/19 07/13/21 Insulin] insulin lispro [Humalog KwikPen 100 unit SUBCUT DAILY 06/03/21 07/13/21 Insulin] Allergies Allergy/AdvReac Type Severity Reaction Status Date / Time ibuprofen Allergy Severe Rash Verified 06/06/21 12:41 Penicillins Allergy Severe Hives Verified 06/06/21 12:41 codeine Allergy Unknown Unknown Verified 06/06/21 12:41 Review of Systems Review of Systems: All systems reviewed & are unremarkable except as noted in HPI and below Constitutional: Constitutional: Denies chills and Denies fever(s) Gastrointestinal: Gastrointestinal: Denies diarrhea, Denies nausea and Denies vomiting PMFSH Past Medical History Medical History (Updated 07/14/21 @ 01:35 by Kevin Richard MD) Asthma Cellulitis Migraine Type 1 diabetes Social History Social History (Updated 07/13/21 @ 23:11 by Kevin Richard MD) Smoking packs per day: 1 Smoking cigarettes per day: 20.0 Years smoked: 28 Smoking pack-years: 28.00 Smoking status: Current every day smoker Tobacco type: cigarettes Alcohol intake: never Substance use: never Exam Const: General: healthy appearing, no acute distress and alert Nutritional Appearance: well nourished and thin Orientation/consciousness: patient oriented x3 HENMT: Head: normal to inspection Ears: external ears normal Face and sinus: normal facial exam Mouth: Yes moist mucous membranes Eyes: Conjunctivae: conjunctivae normal Pupils: Dilated pupils bilaterally EOM: EOMs intact bilaterally Neck: Neck: normal visual inspection Resp: Effort & Inspection: normal respiratory effort Auscultation: clear to auscultation bilaterally Cardio: Rate: regular rate Rhythm: regular rhythm GI: Auscultation: normal bowel sounds Back/Spine/Pelvis: Cervical Spine: cervical ROM normal Thoracic/Lumbar Spine: thoraco-lumbar ROM normal Skin: General skin exam: normal color, turgor normal, crusts (right great toe) and erythema (left 4th toe) Neuro: General: patient oriented x3, moves all extremities, no meningeal signs, no focal motor deficits and CN's II-XI intact bilaterally Speech: normal speech Extrem: General: normal exam except as noted Right lower extremity: foot (great toe mild erythema, no fluctuance, no drainage, healing abrasion ) Left lower extremity: foot Details: tenderness Location: of another digit Location: the 4th digit, at the proximal phalanx, at the middle phalanx, at the distal phalanx and along the dorsal aspect, warmth Location: of another digit Location: the 4th digit, at the proximal phalanx, along the middle phalanx, at the distal phalanx and along the dorsal aspect and edema Location: of another digit ( with erythema) Location: the 4th digit and along the dorsal aspect Psych: Appearance: grossly normal and well kempt Mental Status: mental status grossly normal Affect: normal affect Attitude: cooperative Thought content: Yes Normal thought content present Course Vital Signs Vital signs: Vital Signs Temperature 36.5 C 07/13/21 23:07 Pulse Rate 91 07/13/21 23:07 Respiratory Rate 20 07/13/21 23:07 Blood Pressure 153/90 H 07/13/21 23:07 Pulse Oximetry 100 07/13/21 23:07
[2021-07-13 23:07] VITALS: BP 153/90; PULSE 91; RESP 20; TEMP 36.5; O2SAT 100
[2021-07-13 23:46] LABS: Basophils Absolute Auto 0.08 K/mm3 (0.00-0.10); Basophils Percent Auto 0.6 % (0.0-1.0); Hematocrit 39.7 % (40.0-54.0); Hemoglobin 12.9 g/dL (14.0-18.0); Immature Granulocyte Absolute 0.04 K/mm3 (0.00-0.00); Immature Granulocyte Percent A 0.3 % (0.0-0.0); Lymphocytes Absolute Auto 2.11 K/mm3 (1.10-4.50); Mean Corpuscular HGB Conc 32.5 g/dL (32.0-36.0); Mean Corpuscular Hemoglobin 29.3 pg (27.0-31.0); Mean Corpuscular Volume 90.2 fL (78.0-102.0); Mean Platelet Volume 9.5 fl (8.7-11.0); Monocytes Absolute Auto 0.93 K/mm3 (0.10-0.90); Monocytes Percent Auto 7.1 % (2.0-11.0); Neutrophils Absolute Auto 9.6 K/mm3 (1.7-7.2); Platelet Count Result 458 K/mm3 (150-420); Red Cell Distribution Width 12.3 % (11.6-14.4); White Blood Count 13.2 K/mm3 (4.8-10.8)
[2021-07-14 00:03] LABS: Alanine Aminotransferase 25 U/L (16-63); Albumin Level 3.2 g/dL (3.4-5.0); Alkaline Phosphatase 107 U/L (46-116); Anion Gap 8 mmol/L (8-16); Aspartate Amino Transferase 12 U/L (15-37); Bilirubin,Total 0.2 mg/dL (0.00-1.00); Blood Urea Nitrogen 14 mg/dL (7-18); Calcium 8.6 mg/dL (8.5-10.1); Carbon Dioxide 28 mmol/L (21-32); Chloride 103 mmol/L (98-108); Estimated Glomerular Filt Rate > 60; Glucose 57 mg/dL (70-99); Magnesium 1.9 mg/dL (1.8-2.4); Osmolality Calculated 286 mOsm/kg (285-295); Potassium 3.3 mmol/L (3.5-5.1); Sodium 139 mmol/L (136-145); Total Protein 7.3 g/dL (6.4-8.2)
[2021-07-14 00:04] LABS: CRP < 0.5 mg/dL (0.0-0.9)
[2021-07-14 00:05] LABS: Uric Acid 4.1 mg/dL (3.5-7.2)
[2021-07-14 00:09] LABS: Lactic Acid Reflex 1.6 mmol/L (0.4-2.0)
--- NOTE | 2021-07-14 00:11 | PC.NURSE ---
pt declines to keep on monitoring equipment, but did take 1 container of orange juice
[2021-07-14 00:43] LABS: Amphetamine Screen Urine Positive (Negative); Barbiturate Screen Urine Negative (Negative); Benzodiazepines Screen Urine Negative (Negative); Cannabinoid Screen Urine Negative (Negative); Cocaine Screen Urine Negative (Negative); Methadone Screen Urine Negative (Negative); Opiate Screen Urine Negative (Negative); Phencyclidine Screen Urine Negative (Negative)
[2021-07-14] MEDS: CLINDAMYCIN HCL 150 MG CAP 300 MG PO (01:04)
[2021-07-14 01:10] VITALS: PULSE 93; RESP 16; TEMP 36.7; O2SAT 98
== END 2021-07-14 01:11 | disposition home or self-care (01) ==
PROVIDERS: Emergency Provider Emergency Medicine
DX: F15.10 Other stimulant abuse, uncomplicated (principal); L03.032 Cellulitis of left toe
CPT/HCPCS: 36415; 80053; 80307; 83605; 83735; 84550; 85025; 86140; 99283; A9270

== ENCOUNTER 2022-01-21 13:23 | Observation (INO) | payer OTHER, SELFPAY ==
[2022-01-21] VITALS (23 sets, daily range): BP systolic 123–157; BP diastolic 51–88; PULSE 75–108; RESP 13–27; TEMP 36.3–37; O2SAT 96–99; BMI 27.8
--- NOTE | ~2022-01-21 | XR_ITS ---
XR elbow RT 2V 01/21/2022 14:52 INDICATION: Right elbow pain PROCEDURE: 4 views right elbow COMPARISON: No prior studies for comparison. FINDINGS: Fracture, dislocation or subluxation is not identified. No significant joint effusion. The soft tissues appear within normal limits. No foreign bodies are identified. IMPRESSION: 1: NO ACUTE BONE OR JOINT ABNORMALITY IDENTIFIED. Reviewed, dictated and finalized at location B.
--- NOTE | ~2022-01-21 | XR_ITS ---
EXAMINATION: XR chest 2V DATE: 01/21/2022 14:50 INDICATION: Shortness of breath. TECHNIQUE: Frontal and lateral views of the chest were obtained. COMPARISON: Chest single view 03/06/2021 FINDINGS: The chest demonstrates clear lungs without pneumonia, pleural effusion, or pneumothorax. Th e heart size is normal. IMPRESSION: 1. No acute cardiopulmonary disease. Reviewed, dictated and finalized at location A.
--- NOTE | ~2022-01-21 | CT_ITS ---
EXAMINATION: CT brain wo con DATE: 01/21/2022 14:53 INDICATION: Dizziness. TECHNIQUE: Computed tomography (CT) of the head was performed without intravenous contrast. The mA wa s adjusted according to patient size. Iterative reconstruction technique was employed. The dose-lengt h product was 605.33 mGy-cm. COMPARISON: None FINDINGS: There is no intracranial hemorrhage, acute infarction, or abnormal intracranial mass lesion . The ventricles are normal in size. There is mucosal thickening in the paranasal sinuses. The mastoi d air cells are normal. IMPRESSION: 1. Normal brain. Reviewed, dictated and finalized at location A. IMPRESSION: 1. Normal brain.
[2022-01-21 13:29] LABS: Glucose Point of Care 102 mg/dl (65-105)
--- NOTE | 2022-01-21 13:54 | PC.NURSE ---
Lab at bedside
[2022-01-21 14:04] LABS: Basophils Percent Auto 1.1 % (0.0-1.0); Eosinophils Percent Auto 4.2 % (1.0-6.0); Hematocrit 41.5 % (40.0-54.0); Hemoglobin 13.9 g/dL (14.0-18.0); Immature Granulocyte Absolute 0.02 K/mm3 (0.00-0.00); Immature Granulocyte Percent A 0.2 % (0.0-0.0); Lymphocytes Absolute Auto 2.55 K/mm3 (1.10-4.50); Lymphocytes Percent Auto 26.8 % (18.0-42.0); Mean Corpuscular HGB Conc 33.5 g/dL (32.0-36.0); Mean Corpuscular Hemoglobin 29.5 pg (27.0-31.0); Mean Corpuscular Volume 88.1 fL (78.0-102.0); Mean Platelet Volume 9.4 fl (8.7-11.0); Monocytes Absolute Auto 0.73 K/mm3 (0.10-0.90); Monocytes Percent Auto 7.7 % (2.0-11.0); Neutrophils Absolute Auto 5.7 K/mm3 (1.7-7.2); Platelet Count Result 449 K/mm3 (150-420); Red Blood Count 4.71 M/mm3 (4.70-6.10); Red Cell Distribution Width 12.2 % (11.6-14.4); White Blood Count 9.5 K/mm3 (4.8-10.8)
--- NOTE | 2022-01-21 14:21 | PC.NURSE ---
attempts x3 at IV access unsuccessful, pt very anxious and unable to be still for the procedures at this time
[2022-01-21 14:22] LABS: Lactic Acid Reflex 1.1 mmol/L (0.4-2.0)
--- NOTE | 2022-01-21 14:22 | PC.NURSE ---
One attempt by this RN, three attempts by another RN unsuccessful for peripheral IV access. Pt continues to tense, move arms when attempting to place IV. Pt tearful at this time, emotional support provided. radiology called to complete scans, will attempt again upon return.
[2022-01-21 14:28] LABS: Influenza A QL RT-PCR Negative (Negative); Influenza B QL RT-PCR Negative (Negative); SARS-CoV-2 RNA PCR Negative (Negative)
--- NOTE | 2022-01-21 14:28 | PC.NURSE ---
Pt off floor in radiology.
[2022-01-21 14:29] LABS: Alanine Aminotransferase 27 U/L (16-63); Albumin Level 3.8 g/dL (3.4-5.0); Alkaline Phosphatase 100 U/L (46-116); Anion Gap 6 mmol/L (8-16); Aspartate Amino Transferase 12 U/L (15-37); Bilirubin,Total 0.4 mg/dL (0.00-1.00); Blood Urea Nitrogen 18 mg/dL (7-18); Calcium 8.9 mg/dL (8.5-10.1); Carbon Dioxide 29 mmol/L (21-32); Chloride 103 mmol/L (98-108); Estimated CRCL calculation 94 ml/min; Estimated Glomerular Filt Rate > 60; Glucose 94 mg/dL (70-99); Osmolality Calculated 287 mOsm/kg (285-295); Phosphorus 2.5 mg/dL (2.6-4.7); Potassium 3.7 mmol/L (3.5-5.1); Sodium 138 mmol/L (136-145); Total Protein 7.7 g/dL (6.4-8.2)
[2022-01-21 14:31] LABS: CRP < 0.2 mg/dL (0.0-0.9); Ethanol < 3 mg/dL (0-6); Troponin I 5.3 ng/L (0.00-60.4)
--- NOTE | 2022-01-21 14:38 | PC.NURSE ---
COVID and flu testing negative, mother brought back to Pt room. Still in radiology.
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
[2022-01-21 15:18] LABS: Glucose Point of Care 123 mg/dl (65-105)
[2022-01-21] MEDS: DEXTROSE 5%/0.9% SOD CHL 500 ML 100 ML IV CONT (15:22)
--- NOTE | 2022-01-21 15:40 | PC.NURSE ---
MD spoke with patient and mother, Patient states he can give urine sample 'in a little'.
--- NOTE | 2022-01-21 16:22 | PC.NURSE ---
Pt still states he is unable to void at this time. MD at bedside, patient informed he will have to be straight cathed if he cannot void. Pt upset. Attempting to void again at this time. Spoke with MD, do not want to give Ativan until we are able to obtain a urine tox screen. Pt more alert since being informed of potential straight cath. Per Dr Mendez, hold ativan at this time.
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
--- NOTE | 2022-01-21 16:38 | ED.NAVMDI ---
HPI - Nausea/Vomiting/Diarrhea General Chief complaint: Nausea/Vomiting/Diarrhea Stated complaint: AMBULANCE Time Seen by Provider: 01/21/22 13:24 Source: patient and EMS Mode of arrival: EMS Limitations: no limitations History of Present Illness HPI Narrative: this 36-year-old gentleman with history of diabetes has been out of insurance and not been able take insulin, did take insulin and he was able to buy from [employer], patient apparently was some working with a friend and had a hypoglycemic episode here in the ER his blood sugars have been around 107 to 130s otherwise he appears lethargic but has been using CBD oil, there is no chest pain or shortness of breath no abdominal pain currently no nausea vomiting no dysuria. The patient did fall and injure his right elbow has good range of motion with no bruising or swelling. Patient has a history of seizures but no witnessed seizure activity. Associated nausea: No Associated abdominal pain: No Related Data Home Medications Medication Instructions Recorded Confirmed insulin lispro 100 unit/mL See Rx Instructions .Route .COMPLEX 12/10/19 01/21/22 subcutaneous solution (Humalog U-100 Insulin) insulin lispro 100 unit/mL 100 unit subcut DAILY 06/03/21 01/21/22 subcutaneous pen (Humalog KwikPen (U-100) Insulin) lisinopril 01/21/22 Allergies Allergy/AdvReac Type Severity Reaction Status Date / Time ibuprofen Allergy Severe Rash Verified 01/21/22 13:35 Penicillins Allergy Severe Hives Verified 01/21/22 13:35 codeine Allergy Unknown Unknown Verified 01/21/22 13:35 Review of Systems Review of Systems: All systems reviewed & are unremarkable except as noted in HPI and below PMFSH Past Medical History Medical History Asthma Cellulitis Migraine Type 1 diabetes Social History Social History Smoking packs per day: 1 Smoking cigarettes per day: 20.0 Years smoked: 28 Smoking pack-years: 28.00 Smoking status: Current every day smoker Tobacco type: cigarettes Alcohol intake: never Substance use: never Exam Const: General: healthy appearing Nutritional Appearance: well nourished Orientation/consciousness: patient oriented x3 Limitations: no limitations HENMT: Head: normal to inspection Ears: external ears normal Face/Nose/Sinus: Normal external nose present Face and sinus: normal facial exam Eyes: Conjunctivae: conjunctivae normal Pupils: Equal, round and reactive pupils present EOM: EOMs intact bilaterally Direct Ophthalmoscopy: no photophobia Neck: Neck: normal visual inspection, no lymphadenopathy and no meningeal signs Chest: Chest palpation & inspection: normal inspection of the chest Resp: Effort & Inspection: normal respiratory effort Auscultation: clear to auscultation bilaterally Cardio: Rate: regular rate Rhythm: regular rhythm Heart sounds: Murmur heart sound present GI: GI Palp: Yes Soft to palpation Back/Spine/Pelvis: Back: no CVA tenderness Skin: General skin exam: normal color Rashes: no rashes Wounds: no wounds Neuro: General: patient oriented x3, moves all extremities, no meningeal signs and no focal motor deficits Cranial nerves: Yes Nystagmus not present Speech: normal speech Gait exam (Neuro): Normal gait present Extrem: General: normal to inspection, no clubbing, cyanosis or edema and no pedal edema Psych: Mental Status: mental status grossly normal Affect: Anxious affect present Course Course Emergency Course: Had labs x-rays and see CT scan reviewed with patient and everything was within normal limits repeat blood sugars around 136. Vital Signs Vital signs: Vital Signs Temperature 37.0 C 01/21/22 13:25 Pulse Rate 90 01/21/22 13:25 Respiratory Rate 16 01/21/22 13:25 Blood Pressure 157/88 H 01/21/22 13:25 Pulse Oximetry 99 01/21/22 13:25 Oxygen Delivery Room Air
--- NOTE | 2022-01-21 16:44 | PC.NURSE ---
bedside glucose 254, D5 stopped at this time. MD valenzuela
[2022-01-21 16:48] LABS: Glucose Point of Care 254 mg/dl (65-105)
[2022-01-21 16:52] LABS: Add Urine Microscopic? YES; Appearance Urine Clear (Clear); Bilirubin Urine Negative (Negative); Blood Urine Negative (Negative); Color Urine Yellow (Yellow); Glucose Urine UA 2+ (Negative); Ketones Urine Trace (Negative); Leukocyte Esterase Ur Negative LEU/UL (Negative); Nitrate Urine Negative (Negative); Protein Urine Negative (Negative); Specific Grav Ur 1.025 (1.010-1.020); Urobilinogen Urine 0.2 mg/dL (0.2-1.0); pH Urine 6.5 (5.0-8.0)
[2022-01-21 16:57] LABS: Bacteria Urine Trace /hpf; RBC Urine None seen /hpf (0-2); Squamous Epithelial Cell Urine Rare /hpf (Few); WBC Urine None seen /hpf (0-3)
[2022-01-21 16:59] LABS: Amphetamine Screen Urine Positive (Negative); Barbiturate Screen Urine Negative (Negative); Benzodiazepines Screen Urine Negative (Negative); Cannabinoid Screen Urine Positive (Negative); Cocaine Screen Urine Negative (Negative); Methadone Screen Urine Negative (Negative); Opiate Screen Urine Negative (Negative); Phencyclidine Screen Urine Negative (Negative)
--- NOTE | 2022-01-21 17:47 | PC.NURSE ---
Spoke with charge nurse Patricia, patient to be admitted for observation. Will assign bed with call back.
--- NOTE | 2022-01-21 17:56 | PC.NURSE ---
Pt felt his blood sugar was high, requested it be checked. Bedside 281, MD aware
[2022-01-21 17:57] LABS: Glucose Point of Care 281 mg/dl (65-105)
[2022-01-21 18:15] LABS: Hemoglobin A1C 8.4 % (<5.7)
--- NOTE | 2022-01-21 18:25 | PC.NURSE ---
Pt admitted to second floor, transported by RN. Pt admitted with pants, hat, t-shirt, insulin pen without needles, cross necklace, sneakers. Charge nurse aware that PD needs to be called at time of discharge, given phone number.
--- NOTE | 2022-01-21 18:42 | ADMGEN ---
This patient, Trevor Weiss, was admitted to 2nd Floor Room 207-1. Patient/family oriented to hospital policies and general routines including ID bracelet, bed and alarms, visiting hours, pain management, procedures, bathroom and other care routines, personal items, smoking policy, room service/diet, and visiting hours. Girlfriend is aware of visiting hours and that she will be unable to stay the night. PD to be called upon discharge for warrant per ER nurse LYNDA childress is aware. Pt requesting food for himself and gf at this time. Given sandwich, applesauce and eduarda mist Information on how to activate the Rapid Response Team has been discussed. Patient/Family are encouraged to report perceived risks to care and to ask questions if they do not understand what they are told or what they should do.
--- NOTE | 2022-01-21 19:45 | PC.NURSE ---
[employer] Mach[employer] Sales Representative in room to do patient assessment, visitor noted in bed with patient, visitor got up for pattern chart writer to assess patient. Visitor instructed visiting hours would be over at 8pm, visitor states understanding, states she is having trouble finding a ride. Instructed visitor that she would be able to wait for her ride downstairs in the waiting room, per hospital policy visiting hours are over at 8pm. Patient became agitated and states if pattern chart writer was going to be rude, patient would leave. [employer] Sales Representative offered to get AMA paperwork ready. Patient allowed pattern chart writer to finish assessment, declines leaving at this time.
[2022-01-21 19:58] LABS: Glucose Point of Care 260 mg/dl (65-105)
--- NOTE | 2022-01-21 20:00 | PC.NURSE ---
Visitor reminded that visiting hours were over, states understanding, and states she is Getting my stuff ready .
--- NOTE | 2022-01-21 20:15 | PC.NURSE ---
Visitor still in room, re-instructed that visiting hours were over 15 min ago, visitor agitated, states she is getting her belongings together and will be leaving.
--- NOTE | 2022-01-21 20:20 | PC.NURSE ---
Visitor still in room, instructed her that security would be called if she refused to leave, visitor agitated/angry, does comply with leaving, states she will be calling [employer] operator supervisor [employer] in the morning, declines to speak with charge nurse rodney.
[2022-01-22] VITALS: BP 129/66; PULSE 87; RESP 14; TEMP 36.2; O2SAT 97
[2022-01-22 07:27] VITALS: BP 123/74; PULSE 100; RESP 16; TEMP 36.3; O2SAT 96
--- NOTE | 2022-01-22 07:37 | PC.NURSE ---
Joselin Hassan GYMNASTICS COACH OR INSTRUCTOR notified of glucose 430 this am
[2022-01-22 07:40] LABS: Glucose Point of Care 430 mg/dl (65-105)
[2022-01-22 10:04] LABS: Hematocrit 42.5 % (40.0-54.0); Hemoglobin 14.4 g/dL (14.0-18.0); Mean Corpuscular HGB Conc 33.9 g/dL (32.0-36.0); Mean Corpuscular Hemoglobin 30.1 pg (27.0-31.0); Mean Corpuscular Volume 88.7 fL (78.0-102.0); Mean Platelet Volume 9.8 fl (8.7-11.0); Platelet Count Result 393 K/mm3 (150-420); Red Blood Count 4.79 M/mm3 (4.70-6.10); White Blood Count 10.7 K/mm3 (4.8-10.8)
[2022-01-22 10:29] LABS: Alanine Aminotransferase 23 U/L (16-63); Albumin Level 3.3 g/dL (3.4-5.0); Alkaline Phosphatase 103 U/L (46-116); Anion Gap 7 mmol/L (8-16); Aspartate Amino Transferase 10 U/L (15-37); Bilirubin,Total 0.9 mg/dL (0.00-1.00); Blood Urea Nitrogen 19 mg/dL (7-18); Calcium 8.7 mg/dL (8.5-10.1); Carbon Dioxide 27 mmol/L (21-32); Chloride 97 mmol/L (98-108); Estimated CRCL calculation 80 ml/min; Estimated Glomerular Filt Rate > 60; Osmolality Calculated 292 mOsm/kg (285-295); Potassium 4.3 mmol/L (3.5-5.1); Sodium 131 mmol/L (136-145); Total Protein 7.1 g/dL (6.4-8.2)
[2022-01-22 10:32] LABS: Glucose 422 mg/dL (70-99)
[2022-01-22 11:09] LABS: Glucose Point of Care 333 mg/dl (65-105)
--- NOTE | 2022-01-22 12:22 | PM.SD2 ---
Same Day Admit/Disch: HPI History of Present Illness Chief complaint: AMBULANCE Narrative: Trevor Weiss is a 36 year old male that presented to our emergency department escorted by the local police department. According to patient the police felt as if he had displayed erratic behavior. Patient has a past medical history of diabetes which she is noncompliant and he also takes lisinopril denies any history of hypertension. According to the patient while he was at home he became dizzy and fell over on his porch and injured his right arm. Patient also notes that he felt as if his blood sugar was low. Readings here at our hospital for his blood sugar was 100 and greater. Patient also notes that he had a seizure which was unwitnessed. He also notes that he has had several seizures here at our hospital which was also unwitnessed. Patient notes that he sees a neurologist in [place]. 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 Patient also notes that he does not have any insurance. Patient's primary care physician is Located in [facility]. Patient notes that they received to see him as a patient. Our rehabilitation case coordinator called over to [facility] clinic. Clinic did not refuse to see patient they just referred him to endocrinology better control his diabetes. On discharge we attempted to get the patient an appointment at his primary care physician he refused. We also offered to get the patient an appointment with neurology due to his unwitnessed seizures activity. Patient was not given a seizure medication here because none of his seizures were witnessed. Patient was also instructed not to drive a vehicle until he is seen by a neurologist due to his seizure activity. All patient's diagnostic tests and imaging was unremarkable. During discharge patient was concerned about being detained by police due to his warrant. Patient did test positive for amphetamines and cannabis. Patient did admit to using CBD but denies any amphetamine use. Patient does complain of nausea and vomiting. Once again vomiting was unwitnessed. The patient denies SOB, CP, palpitation, extremity numbness, lightheadedness, dizziness, constipation, diarrhea, chills, or fever. Patient blood sugar was elevated this hospital stay due to the use of dextrose in his IV fluid. On discharge patient blood sugar less than 300 patient instructed to use his insulin to control his blood sugar. Discharge instructions reviewed with patient, as well as provided in writing per nursing staff. The instructions also include specific and strict return/GO TO THE ER as well as f/u information. All questions have been answered, and the patient and/or family deny any further questions with discharge and discharge plan. [facility] Past Medical History Medical History Asthma Cellulitis Migraine Type 1 diabetes Social History Social History Smoking packs per day: 1 Smoking cigarettes per day: 20.0 Years smoked: 28 Smoking pack-years: 28.00 Smoking status: Current every day smoker Tobacco type: cigarettes and e-cigarettes/vaping Second hand tobacco smoke exposure: Yes Alcohol intake: unknown Substance use: current Substance use type: marijuana and amphetamines Spiritual care concerns: No Has the Lack of Transportation Kept You From Medical Appointments or From Getting Medications?: No Within the Past 12 Months, Were You Worried Whether Your Food Would Run Out Before You Got Money to Buy More?: Never True What is Your Housing Situation Today?: I Have Housing Are You Worried That in the Next 2 Months, You May Not Have Your Own Housing to Live In?: No Do You Have Trouble Paying Your Heating Or Electricity Bill?: No Do You Have Trouble Paying
[2022-01-22 13:04] LABS: Glucose Point of Care 221 mg/dl (65-105)
--- NOTE | 2022-01-22 13:35 | PC.NURSE ---
hot metal charger aware of bs and one time order. insulin given as ordered. now patient is up in room. has no c/o. has pulled his iv out and fully dressed. does not want education because he knows how to take of his diabetes because he has had this disease for over 15 yrs. does not want to ride out in . claims his son is in the driveway waiting for him.
--- NOTE | 2022-01-22 15:27 | PC.NURSE ---
patient called here about having no ativan or insulin ordered for him at local pharm. contacted paulino delatorre np and claims she will send orders for his insulin only. called patient back and explained that.
--- NOTE | 2022-01-22 16:25 | PC.NURSE ---
mother called this time questioning insulin not being called in. juan ramon morning caregiver aware and now ordered 5 tabs of ativan and claims order is pending at pharm.
--- NOTE | 2022-01-22 16:36 | PC.NURSE ---
pharmacy has orders and questioning doses. they are calling juan ramon bryson for clarifications. patient and family aware.
--- NOTE | 2022-01-28 11:17 | PC.NURSE ---
Unable to contact for discharge call back.
== END 2022-01-22 13:20 | disposition home or self-care (01) ==
LOC: CHSED 17:36 → CHS2ND 17:57
PROVIDERS: Nurse Practitioner; Admitting Provider Internal Medicine; Emergency Provider Emergency Medicine; Visit Provider Internal Medicine
DX: E10.649 Type 1 diabetes mellitus with hypoglycemia without coma (principal); T38.3X6A Underdosing of insulin and oral hypoglycemic [antidiabetic] drugs, initial encounter; J45.909 Unspecified asthma, uncomplicated; F17.210 Nicotine dependence, cigarettes, uncomplicated; Z20.822 Contact with and (suspected) exposure to COVID-19; Z79.4 Long term (current) use of insulin; Z91.120 Patient's intentional underdosing of medication regimen due to financial hardship; R56.9 Unspecified convulsions
CPT/HCPCS: 36415; 70450; 71046; 73070; 80053; 80307; 81001; 82948; 83036; 83605; 83735; 84100; 84484; 85025; 85027; 86140; 87040; 87502; 96360; 99285; G0378; G0379; J1815; J7042; U0003; U0005

== ENCOUNTER 2022-03-20 16:27 | Emergency (ER) | payer OTHER, SELFPAY ==
[2022-03-20 16:27] VITALS: BP 145/99; PULSE 98; RESP 18; TEMP 36.9; O2SAT 100
--- NOTE | 2022-03-20 16:47 | ED.GENADULT ---
HPI - General Adult General Chief complaint: Unspecified Stated complaint: diabetic Time Seen by Provider: 03/20/22 16:41 History of Present Illness HPI narrative: The patient is a 36-year-old male with history of insulin-dependent diabetes, migraine headaches, asthma, who uses cigarettes. He has been using regular insulin for the last several years, not long-acting insulin. He has ran out of his regular insulin. He uses 1 unit per every 15 carbs that he consumes. He is able to regulate that at home. His HgbA1C has been in the 7 range. He comes in requesting refills on his insulin. Also requests a refill on his albuterol nebulizer that he uses as needed. His last use of regular insulin was last night. He does purchase the regular insulin from [email or web address] [id number]. He went next door to obtain paperwork to be seen by primary care provider today. He does not have a PCP. Does have a chronic cough from cigarette use. This is unchanged. No fevers or chills. No myalgias. No abdominal pain. No nausea or vomiting. No tremors or shakes. Related Data Allergies Allergy/AdvReac Type Severity Reaction Status Date / Time ibuprofen Allergy Severe Rash Verified 03/20/22 16:39 Penicillins Allergy Severe Hives Verified 03/20/22 16:39 codeine Allergy Unknown Unknown Verified 03/20/22 16:39 Review of Systems Review of Systems: All systems reviewed & are unremarkable except as noted in HPI and below Constitutional: Constitutional: Reports no additional constitutional complaints, Denies anorexia, Denies body ache(s), Denies chills, Denies excessive sweating, Denies fatigue, Denies fever(s), Denies frequent falls, Denies headache(s), Denies malaise and Denies poor appetite Eyes: Eyes: Reports no additional eye complaints, Denies blurry vision, Denies change in vision, Denies irritation, Denies itchy eyes and Denies photophobia ENT: Reports system reviewed and no additional complaints, except as documented, Reports Normal hearing present, Denies change in voice, Denies dysphagia, Denies vertigo, Denies dizziness, Denies ear discharge, Denies headache(s), Denies hearing loss, Denies hoarseness, Denies nasal congestion, Denies neck pain, Denies sinus pressure, Denies sore throat and Denies throat swelling Cardiovascular: Cardiovascular: Reports no additional cardiovascular complaints, Denies chest pain, Denies syncope, Denies rapid heart rate, Denies irregular heart rhythm, Denies leg edema, Denies dyspnea and Denies slow heart rate Respiratory: Respiratory: Reports no additional respiratory complaints, Reports cough (chronic), Denies dyspnea, Denies stridor and Denies wheezing Gastrointestinal: Gastrointestinal: Reports no additional gastrointestinal complaints, Denies abdominal pain, Denies melena, Denies hematochezia, Denies dysphagia, Denies diarrhea, Denies nausea and Denies vomiting Genitourinary: Genitourinary: Denies hematuria, Denies oliguria, Denies dysuria, Denies flank pain, Denies urinary frequency and Denies urinary urgency Musculoskeletal: Musculoskeletal: Reports no additional musculoskeletal complaints, Denies abnormal gait, Denies back pain, Denies myalgias, Denies arthralgias, Denies joint swelling, Denies limited range of motion, Denies muscle cramps, Denies muscle weakness, Denies neck pain and Denies numbness Integumentary/Breasts: Skin/Breast: Reports system reviewed and no additional complaints, except as docu, Denies breast pain, Denies change in pigmentation, Denies pruritus, Denies erythema and Denies wounds Neurologic: Reports system reviewed and no additional complaints, except as documented, Reports Normal hearing present, Denies Abnormal speech present, Denies abnormal gait, Denies confusion, Denies vertigo, Denies dizziness, Denies syncope, Denies frequent falls, Denies headache(s), Denies focal weakness, Denies numbness and Denies paresthesias Psychiatric: Psychiatric: Reports no additional psychiatric complaints and Denies c
[2022-03-20 16:51] LABS: Glucose Point of Care 121 mg/dl (65-105)
== END 2022-03-20 17:30 | disposition home or self-care (01) ==
PROVIDERS: Emergency Provider Emergency Medicine
DX: E10.9 Type 1 diabetes mellitus without complications (principal); J45.909 Unspecified asthma, uncomplicated; F17.210 Nicotine dependence, cigarettes, uncomplicated; Z76.0 Encounter for issue of repeat prescription
CPT/HCPCS: 82948; 99283

== ENCOUNTER 2022-03-27 09:41 | Emergency (ER) | payer OTHER, SELFPAY ==
--- NOTE | ~2022-03-27 | CT_ITS ---
EXAMINATION: CT brain wo con DATE: 03/27/2022 10:53 INDICATION: Head injury after being taken to the ground during arrest TECHNIQUE: Computed tomography (CT) of the head was performed without intravenous contrast. Sagittal and coronal reconstructions were performed. The mA was adjusted according to patient size. Iterative reconstruction technique was employed. The dose-length product was 605.33 mGy-cm. COMPARISON: head CT dated 01/21/2022 FINDINGS: No fracture. No acute intracranial hemorrhage, acute infarction or abnormal extra axial fluid collect ion. Ventricles are normal and symmetric. No mass/mass effect. Mild mucosal thickening in the bilater al ethmoid sinuses. The orbits and mastoid air cells are normal. IMPRESSION: 1. Normal brain. No fracture or acute intracranial process. Reviewed, dictated and finalized at location A. INSULATOR
--- NOTE | ~2022-03-27 | CT_ITS ---
EXAMINATION: CT cervical spine wo con DATE: 03/27/2022 10:54 INDICATION: Neck pain, headache and lightheadedness after being taken to the ground during arrest. TECHNIQUE: Computed tomography (CT) of the cervical spine was performed without intravenous contrast. Automated exposure control and iterative reconstruction technique were employed. The dose-length pro duct was 455.64 mGy-cm. COMPARISON: None FINDINGS: Mild cervicothoracic dextrocurvature. Sagittal alignment is normal. Vertebral body heights are normal . No fracture. Disc heights are normal. Multilevel minimal to mild cervical facet and uncovertebral o steoarthritis which is without associated neural foraminal stenosis. No central canal stenosis. Cervi geoffrey soft tissues are unremarkable. Visualized apices of lungs are clear. IMPRESSION: 1. Mild cervicothoracic dextrocurvature with minimal to mild cervical facet and uncovertebral osteoar thritis. No acute osseous abnormality. Reviewed, dictated and finalized at location A. ED OATS MILL OPERATOR IMPRESSION: 1. Mild cervicothoracic dextrocurvature with minimal to mild cervical facet and uncovertebral osteoarthritis. No acute osseous abnormality.
[2022-03-27 09:42] VITALS: BP 177/98; PULSE 99; RESP 16; TEMP 36.7; O2SAT 97
--- NOTE | 2022-03-27 09:45 | ED.GENADULT ---
HPI - General Adult General Chief complaint: Unspecified Stated complaint: HIGH SUGAR LEVELS Time Seen by Provider: 03/27/22 09:44 History of Present Illness HPI narrative: Trevor is a 36M with a PMH of seizures, substance abuse, asthma, migraines and type 1 diabetes brought in by Aby GARDINER with elevated blood sugars. He also reports that during the arrest he was taken down on his head and now has a headache, is lightheaded and he has neck pain. He also admits a dry mouth and diarrhea but no chest pain, N/V, or dyspnea. Related Data Home Medications Medication Instructions Recorded Confirmed lorazepam 0.5 mg tablet 1 mg PO PRN PRN Withdrawal Symptoms 03/27/22 03/27/22 Allergies Allergy/AdvReac Type Severity Reaction Status Date / Time ibuprofen Allergy Severe Rash Verified 03/27/22 12:36 Penicillins Allergy Severe Hives Verified 03/27/22 12:36 codeine Allergy Unknown Unknown Verified 03/27/22 12:36 Review of Systems Review of Systems: All systems reviewed & are unremarkable except as noted in HPI and below [facility] Past Medical History Medical History Asthma Cellulitis Migraine Type 1 diabetes Social History Social History Smoking packs per day: 1 Smoking cigarettes per day: 20.0 Years smoked: 28 Smoking pack-years: 28.00 Smoking status: Current every day smoker Tobacco type: cigarettes and e-cigarettes/vaping Second hand tobacco smoke exposure: Yes Alcohol intake: unknown Substance use: current Substance use type: marijuana and amphetamines Lack of Transportation: No Lack of Food: Never True Current Housing: I Have Housing Concerned About Future Housing: No Difficulty Paying Gas/Electric Bills: No Difficulty Paying for Meds: No Currently Unemployed: No Education: High School Diploma/GED Difficulty w/ Childcare or Family Care: No Spiritual care concerns: No Exam Const: General: healthy appearing and no acute distress Nutritional Appearance: well nourished Orientation/consciousness: patient oriented x3 HENMT: Head: normal to inspection Ears: external ears normal Face/Nose/Sinus: Normal external nose present Face and sinus: normal facial exam Eyes: Conjunctivae: conjunctivae normal Pupils: Equal, round and reactive pupils present EOM: EOMs intact bilaterally Neck: Other: decreased active ROM and midline tenderness Chest: Chest palpation & inspection: normal inspection of the chest Resp: Effort & Inspection: normal respiratory effort Auscultation: clear to auscultation bilaterally Cardio: Rate: regular rate Rhythm: regular rhythm GI: Inspection: non-distended GI Palp: Yes Soft to palpation and No Tenderness to palpation present (GI) Back/Spine/Pelvis: Back: no CVA tenderness Skin: General skin exam: normal color Neuro: General: patient oriented x3 and moves all extremities Cranial nerves: Yes Nystagmus not present Extrem: General: normal to inspection Psych: Mental Status: mental status grossly normal Course Course Emergency Course: glucose >450. ordered labs. started IV fluids. placed in C-collar. ordered CT. EXAMINATION: CT cervical spine wo con DATE: 03/27/2022 10:54 INDICATION: Neck pain, headache and lightheadedness after being taken to the ground during arrest. TECHNIQUE: Computed tomography (CT) of the cervical spine was performed without intravenous contrast. Automated exposure control and iterative reconstruction technique were employed. The dose-length product was 455.64 mGy-cm. COMPARISON: None FINDINGS: Mild cervicothoracic dextrocurvature. Sagittal alignment is normal. Vertebral body heights are normal. No fracture. Disc heights are normal. Multilevel minimal to mild cervical facet and uncovertebral osteoarthritis which is without associated neural foraminal stenosis. No central canal stenosis. Cervical soft tissues are
[2022-03-27 09:50] VITALS: BP 177/98; PULSE 99; RESP 16; TEMP 36.7; O2SAT 97
[2022-03-27 09:50] LABS: Glucose Point of Care > 450 mg/dl (65-105)
[2022-03-27] MEDS: SODIUM CHLORIDE 0.9% IV 1,000 ML 999 ML IV CONT ×2 (10:03→10:56)
[2022-03-27 10:13] LABS: Device ROOM AIR; HCO3 VBG 22.1 mEq/l (24.0-30.0); PCO2 VBG 37.4 mmHg (42.0-48.0); PO2 VBG 53.3 mmHg (35.0-45.0); pH VBG 7.39 (7.33-7.43)
--- NOTE | 2022-03-27 10:13 | PC.NURSE ---
patient placed in c-collar
[2022-03-27 10:16] LABS: Basophils Absolute Auto 0.11 K/mm3 (0.00-0.10); Basophils Percent Auto 1.3 % (0.0-1.0); Eosinophils Absolute Auto 0.19 K/mm3 (0.02-0.50); Eosinophils Percent Auto 2.3 % (1.0-6.0); Hematocrit 39.6 % (40.0-54.0); Hemoglobin 13.2 g/dL (14.0-18.0); Immature Granulocyte Absolute 0.03 K/mm3 (0.00-0.00); Immature Granulocyte Percent A 0.4 % (0.0-0.0); Lymphocytes Percent Auto 17.9 % (18.0-42.0); Mean Corpuscular HGB Conc 33.3 g/dL (32.0-36.0); Mean Corpuscular Hemoglobin 29.4 pg (27.0-31.0); Mean Corpuscular Volume 88.2 fL (78.0-102.0); Mean Platelet Volume 10.9 fl (8.7-11.0); Neutrophils Absolute Auto 6.1 K/mm3 (1.7-7.2); Neutrophils Percent Auto 72.1 % (50.0-70.0); Platelet Count Result 324 K/mm3 (150-420); Red Blood Count 4.49 M/mm3 (4.70-6.10); Red Cell Distribution Width 12.3 % (11.6-14.4); White Blood Count 8.4 K/mm3 (4.8-10.8)
[2022-03-27 10:25] LABS: Hemoglobin A1C 9.3 % (<5.7)
[2022-03-27 10:26] LABS: Alanine Aminotransferase 27 U/L (16-63); Albumin Level 3.6 g/dL (3.4-5.0); Alkaline Phosphatase 98 U/L (46-116); Anion Gap 8 mmol/L (8-16); Aspartate Amino Transferase < 10 U/L (15-37); Bilirubin,Total 0.5 mg/dL (0.00-1.00); Blood Urea Nitrogen 17 mg/dL (7-18); Calcium 8.5 mg/dL (8.5-10.1); Carbon Dioxide 26 mmol/L (21-32); Chloride 98 mmol/L (98-108); Estimated Glomerular Filt Rate > 60; Potassium 4.8 mmol/L (3.5-5.1); Sodium 132 mmol/L (136-145); Total Protein 7.1 g/dL (6.4-8.2)
--- NOTE | 2022-03-27 10:29 | PC.NURSE ---
Blood Glucose from lab 553. erp aware.
[2022-03-27 10:30] LABS: Glucose 553 mg/dL (70-99); Osmolality Calculated 300 mOsm/kg (285-295)
[2022-03-27 10:53] LABS: Glucose Point of Care > 450 mg/dl (65-105)
[2022-03-27] MEDS: INSULIN HUMAN REGULAR (*BKC) 100 UNITS/ML 10 UNITS IV PUSH (10:56)
[2022-03-27 10:57] LABS: Add Urine Microscopic? YES; Appearance Urine Clear (Clear); Bilirubin Urine Negative (Negative); Blood Urine Negative (Negative); Color Urine Light Yellow (Yellow); Glucose Urine UA 3+ (Negative); Ketones Urine 1+ (Negative); Leukocyte Esterase Ur Negative LEU/UL (Negative); Nitrate Urine Negative (Negative); Protein Urine Negative (Negative); Urobilinogen Urine 0.2 mg/dL (0.2-1.0)
[2022-03-27] MEDS: INSULIN REG 100 UNITS/100 ML 100 UNITS/100 ML BAG IV CONT (10:58)
[2022-03-27 11:00] LABS: Bacteria Urine None seen /hpf; RBC Urine None seen /hpf (0-2); Squamous Epithelial Cell Urine Rare /hpf (Few); WBC Urine None seen /hpf (0-3)
[2022-03-27] MEDS: ACETAMINOPHEN 500 MG TABLET 1000 MG PO (11:09)
[2022-03-27 11:41] LABS: Glucose Point of Care 369 mg/dl (65-105)
[2022-03-27 12:33] LABS: Glucose Point of Care 356 mg/dl (65-105)
--- NOTE | 2022-03-27 12:37 | PC.NURSE ---
RN and PD went into patient's room, patient was shaking, upon entering patient was alert and oriented and shaking stopped when patient was talked to. patient has cup of water at beside and rn found water on the ground and on his pants. ERP at beside evaluating patient. no postictal phase to be found.
[2022-03-27] MEDS: INSULIN HUMAN REGULAR (*BKC) 100 UNITS/ML IV PUSH (12:49)
[2022-03-27 13:00] VITALS: BP 157/72; PULSE 93; RESP 16; TEMP 36.9; O2SAT 97
[2022-03-27 13:15] LABS: Glucose Point of Care 307 mg/dl (65-105)
[2022-03-27 13:51] LABS: Glucose Point of Care 248 mg/dl (65-105)
[2022-03-27 14:30] VITALS: BP 134/86; PULSE 97; RESP 16; TEMP 36.6; O2SAT 97
[2022-03-27 14:33] LABS: Glucose Point of Care 265 mg/dl (65-105)
[2022-03-27 14:35] VITALS: BP 134/86; PULSE 84; RESP 16; TEMP 36.9; O2SAT 98
== END 2022-03-27 14:30 ==
PROVIDERS: Emergency Provider Family Medicine
DX: E10.65 Type 1 diabetes mellitus with hyperglycemia (principal); S09.90XA Unspecified injury of head, initial encounter; Y35.93XA Legal intervention, means unspecified, suspect injured, initial encounter; F17.210 Nicotine dependence, cigarettes, uncomplicated; F17.290 Nicotine dependence, other tobacco product, uncomplicated; F15.90 Other stimulant use, unspecified, uncomplicated; F12.90 Cannabis use, unspecified, uncomplicated; Z79.4 Long term (current) use of insulin; Z79.51 Long term (current) use of inhaled steroids
CPT/HCPCS: 36415; 70450; 72125; 80053; 81001; 82803; 82948; 83036; 85025; 96365; 96366; 99284; J1815; J7030; L0150

== ENCOUNTER 2022-05-25 18:23 | Emergency (ER) | payer OTHER, SELFPAY ==
--- NOTE | ~2022-05-25 | CT_ITS ---
EXAMINATION: CT cervical spine wo con DATE: 05/25/2022 19:03 INDICATION: syncope hit head, generalized neck pain TECHNIQUE: Computed tomography (CT) of the cervical spine was performed without intravenous contrast. Automated exposure control and iterative reconstruction technique were employed. The dose-length pro duct was 484.71 mGy-cm. COMPARISON: 03/27/2022. FINDINGS: Vertebral Body Alignment: Intact. . Craniocervical and atlantoaxial alignment: Moderate degenerative change. Alignment intact. Osseous structures/fracture: No evidence of a lytic or blastic process in the visualized spine. No e vidence of acute fracture. Trace left mastoid fluid, without erosion or evidence of a fracture. Cervical soft tissues: The paraspinal soft tissues planes are maintained. Food bolus in the esophagus . Degenerative changes: No significant degenerative changes. IMPRESSION: No acute fracture or traumatic malalignment in the cervical spine. Food bolus in the esophagus, corre late with history of esophageal dysmotility or reflux. Reviewed, dictated and finalized at location K. ARIAN IMPRESSION: No acute fracture or traumatic malalignment in the cervical spine. Food bolus i n the esophagus, correlate with history of esophageal dysmotility or reflux.
--- NOTE | ~2022-05-25 | CT_ITS ---
EXAMINATION: CT brain wo con DATE: 05/25/2022 19:02 INDICATION: head trauma . TECHNIQUE: Computed tomography (CT) of the head was performed without intravenous contrast. The mA wa s adjusted according to patient size. Iterative reconstruction technique was employed. The dose-lengt h product was 1362.00 mGy-cm. COMPARISON: 01/21/2022. FINDINGS: No acute intracranial hemorrhage or extra-axial fluid collection. No hydrocephalus, mass, or herniation. No acute ischemic infarct. Unremarkable dural venous sinus attenuation. No acute osseous abnormality. Ethmoid sinus mucosal thickening, the remaining aerated spaces are clear. IMPRESSION: No acute intracranial process. Reviewed, dictated and finalized at location K. SPECIAL EDUCATION TEACHER
--- NOTE | ~2022-05-25 | XR_ITS ---
EXAMINATION: XR chest 2V Exam Date/Time: 05/25/2022 19:00 COLOR GRINDER HISTORY: PAIN TO RIGHT POSTERIOR RIBS POST SYNCOPE, LOW BLOOD SUGAR Comparison: 01/21/2022. RESULT: Lines, tubes, and devices: None. Lungs and pleura: Clear. Cardiomediastinal silhouette: Stable. Other: No acute osseous or upper abdominal finding. IMPRESSION: No acute cardiopulmonary process. Reviewed, dictated and finalized at location K. R GRINDER
[2022-05-25 18:23] VITALS: BP 141/82; PULSE 106; PULSE 116; RESP 18; TEMP 36.9; O2SAT 99
--- NOTE | 2022-05-25 18:39 | ED.GENADULT ---
HPI - General Adult General Chief complaint: Unspecified Stated complaint: low blood sugar Time Seen by Provider: 05/25/22 18:32 Source: patient and EMS Mode of arrival: EMS Limitations: no limitations History of Present Illness HPI narrative: patient is a 36-year-old diabetic without doctor on insulin today took his insulin 20 units regular without eating at 5:30 a.m. today.. Police was called to the house for domestic found the patient in the bathroom of altered mental status had a seizure x2 was given Narcan 2 x 2 for total 4 mg IM EMS arrived and his blood sugar was 29 he was given 250 mL of D10 blood sugar was then 86 here in the emergency was 110 on arrival. Patient was depressed his girlfriend said he wished she he was . Patient started to go down when the police were there any hit his head against the wall as the police caught him. EMS stated that by the time they josh up benzo he was mental status was clear and he had no postictal state. He has a history of having seizures when his sugars go down low. Says he takes insulin 5 to 9 times a day. Related Data Allergies Allergy/AdvReac Type Severity Reaction Status Date / Time ibuprofen Allergy Severe Rash Verified 05/25/22 18:34 Penicillins Allergy Severe Hives Verified 05/25/22 18:34 codeine Allergy Unknown Unknown Verified 05/25/22 18:34 Review of Systems Constitutional: Constitutional: Reports no additional constitutional complaints Eyes: Eyes: Reports no additional eye complaints ENT: Reports system reviewed and no additional complaints, except as documented Cardiovascular: Cardiovascular: Reports no additional cardiovascular complaints Respiratory: Respiratory: Reports no additional respiratory complaints Gastrointestinal: Gastrointestinal: Reports no additional gastrointestinal complaints Genitourinary: Genitourinary: Reports no additional male genitourinary complaints Musculoskeletal: Musculoskeletal: Reports back pain Psychiatric: Psychiatric: Reports anxiety, Reports depression, Denies homicidal ideation and Denies suicidal ideation [facility] Past Medical History Medical History Asthma Cellulitis Migraine Type 1 diabetes Social History Social History Smoking packs per day: 1 Smoking cigarettes per day: 20.0 Years smoked: 28 Smoking pack-years: 28.00 Smoking status: Current every day smoker Tobacco type: cigarettes and e-cigarettes/vaping Second hand tobacco smoke exposure: Yes Alcohol intake: unknown Substance use: current Substance use type: marijuana and methamphetamine Lack of Transportation: No Lack of Food: Never True Current Housing: I Have Housing Concerned About Future Housing: No Difficulty Paying Gas/Electric Bills: No Difficulty Paying for Meds: No Currently Unemployed: No Education: High School Diploma/GED Difficulty w/ Childcare or Family Care: No Living arrangements: with family Spiritual care concerns: No Exam Narrative: Tearful white male 6 ft tall head is normocephalic atraumatic eyes pupils are equal round react to light conjunctiva are injected. Oropharynx clear with moist mucous membranes neck is supple nontender back is Has some right parathoracic tenderness mild no crepitation lungs are clear heart is regular rate and rhythm without murmurs gallops rubs abdomen is soft and nontender no hepatosplenomegaly or masses no CVA tenderness no abdominal bruits on his right and his left lower quadrant he has circular swelling of soft tissue where he has been giving himself insulin shots those are the only places that he gets himself injections. Extremities no cyanosis clubbing or edema. Neurologically he is alert and oriented x4 motor and sensory are normal. Is warm and dry. Course Course Emergency Course: patient was placed in room 2 by EMS history and physical was obtai
--- NOTE | 2022-05-25 18:51 | PC.NURSE ---
pt drank 8 oz apple juice, ate a cup of apple sauce and is in ct at this time. pt has turkey sandwich and chips with milk at bedside. pt is awaiting dextrose drip to be verified by pharmacy to initiate.
[2022-05-25 19:11] VITALS: PULSE 97; RESP 16; O2SAT 100
[2022-05-25] MEDS: DEXTROSE 5%/0.9% SOD CHL 1,000 ML 999 ML IV CONT (19:12)
--- NOTE | 2022-05-25 19:18 | PC.NURSE ---
PT STATES HE IS HAVING BILATERAL CALF PAIN. REPORTED TO ERP. NEW ORDERS RECEIVED.
[2022-05-25 19:20] LABS: Hematocrit 42.8 % (40.0-54.0); Hemoglobin 14.2 g/dL (14.0-18.0); Mean Corpuscular HGB Conc 33.2 g/dL (32.0-36.0); Mean Corpuscular Hemoglobin 29.5 pg (27.0-31.0); Mean Corpuscular Volume 88.8 fL (78.0-102.0); Mean Platelet Volume 10.3 fl (8.7-11.0); Platelet Count Result 366 K/mm3 (150-420); Red Blood Count 4.82 M/mm3 (4.70-6.10); Red Cell Distribution Width 12.3 % (11.6-14.4); White Blood Count 12.8 K/mm3 (4.8-10.8)
[2022-05-25] MEDS: ACETAMINOPHEN 500 MG TABLET 1000 MG PO (19:22)
[2022-05-25 19:28] VITALS: BP 138/98; PULSE 102; RESP 20; O2SAT 100
[2022-05-25 19:31] VITALS: BP 131/78; PULSE 110; RESP 18; O2SAT 99
[2022-05-25 19:32] LABS: Alanine Aminotransferase 28 U/L (16-63); Albumin Level 3.7 g/dL (3.4-5.0); Alkaline Phosphatase 103 U/L (46-116); Anion Gap 7 mmol/L (8-16); Aspartate Amino Transferase 15 U/L (15-37); Bilirubin,Total 0.3 mg/dL (0.00-1.00); Blood Urea Nitrogen 12 mg/dL (7-18); Calcium 8.7 mg/dL (8.5-10.1); Carbon Dioxide 31 mmol/L (21-32); Chloride 105 mmol/L (98-108); Estimated CRCL calculation 97 ml/min; Estimated Glomerular Filt Rate > 60; Magnesium 1.7 mg/dL (1.8-2.4); Osmolality Calculated 292 mOsm/kg (285-295); Potassium 3.2 mmol/L (3.5-5.1); Sodium 143 mmol/L (136-145); Total Protein 7.5 g/dL (6.4-8.2)
--- NOTE | 2022-05-25 19:32 | PC.NURSE ---
Pt states he has a cyst on his inner left butt cheek. States he has had staph infection in the similar area in the past. States he has had this new cyst for a few weeks and that the cyst has popped in the past. ERP notified.
[2022-05-25 19:34] LABS: Ethanol < 3 mg/dL (0-6)
[2022-05-25 19:35] LABS: Glucose 47 mg/dL (70-99); Partial Thromboplastin Time 26.3 SEC (23.90-30.70); Prothrombin Time 10.7 Seconds (9.50-12.10)
[2022-05-25 19:37] LABS: Acetone Negative (Negative)
[2022-05-25 19:43] LABS: Appearance Urine Clear (Clear); Bilirubin Urine 1+ (Negative); Blood Urine Negative (Negative); Glucose Urine UA Trace (Negative); Ketones Urine Trace (Negative); Leukocyte Esterase Ur Negative LEU/UL (Negative); Nitrate Urine Negative (Negative); Protein Urine 1+ (Negative); Specific Grav Ur >= 1.030 (1.010-1.020)
[2022-05-25 19:52] LABS: Add Urine Microscopic? YES; Amorphous Sediment Urine Few; Color Urine Dark Yellow (Yellow); Hyaline Casts Urine 15-19 /lpf; Mucus Urine Heavy /lpf
[2022-05-25 19:57] LABS: Amphetamine Screen Urine Positive (Negative); Barbiturate Screen Urine Negative (Negative); Benzodiazepines Screen Urine Negative (Negative); Cannabinoid Screen Urine Positive (Negative); Cocaine Screen Urine Positive (Negative); Methadone Screen Urine Negative (Negative); Opiate Screen Urine Negative (Negative); Phencyclidine Screen Urine Negative (Negative)
[2022-05-25 20:00] LABS: Glucose Point of Care 203 mg/dl (65-105)
[2022-05-25] MEDS: SODIUM CHLORIDE 0.9% IV 1,000 ML 999 ML IV CONT (20:13)
--- NOTE | 2022-05-25 20:17 | PC.NURSE ---
Pt has pulled out his IV stating that he wants to leave. RN applies a dressing to the bleeding IV site and stops bleeding. IV catheter was removed intact. RN informs pt of the risks of leaving AMA. Pt verbalized understanding and still is ready to leave. RN reports to ERP. Pt signs a paper AMA and leaves without incident.
[2022-05-25 20:19] VITALS: BP 134/92; PULSE 95; RESP 20; O2SAT 100
== END 2022-05-25 20:23 | disposition left against medical advice (07) ==
PROVIDERS: Emergency Provider Emergency Medicine
DX: E10.649 Type 1 diabetes mellitus with hypoglycemia without coma (principal); R56.9 Unspecified convulsions; E86.0 Dehydration; K61.1 Rectal abscess; S09.90XA Unspecified injury of head, initial encounter; W18.39XA Other fall on same level, initial encounter; F17.210 Nicotine dependence, cigarettes, uncomplicated; F17.290 Nicotine dependence, other tobacco product, uncomplicated; F12.90 Cannabis use, unspecified, uncomplicated; F15.90 Other stimulant use, unspecified, uncomplicated; Z79.4 Long term (current) use of insulin; Z79.51 Long term (current) use of inhaled steroids
CPT/HCPCS: 36415; 70450; 71046; 72125; 80053; 80307; 81001; 82010; 82948; 83735; 85027; 85610; 85730; 96360; 99284; J7030; J7042

== ENCOUNTER 2022-07-02 07:35 | Emergency (ER) | payer OTHER, SELFPAY ==
[2022-07-02 07:41] LABS: Glucose Point of Care 143 mg/dl (65-105)
[2022-07-02 07:43] VITALS: BP 145/98; PULSE 94; RESP 18; TEMP 36.7; O2SAT 98
--- NOTE | 2022-07-02 07:46 | ED.SKABFB ---
HPI - Skin/Abscess/Foreign Bdy General Chief complaint: Skin/Abscess/Foreign Body Stated complaint: skin abcess-left arm Time Seen by Provider: 07/02/22 07:46 Source: patient and RN notes reviewed Mode of arrival: ambulatory Limitations: no limitations History of Present Illness complaint: abscess/boil Onset (ago): day(s) (3) Location: LUE Severity: moderate Quality: aching, dull and constant Pain Consistency: constant Relieving factors: none Exacerbating factors: palpation Context: none Associated symptoms: denies other symptoms Treatments prior to arrival: none Related Data Allergies Allergy/AdvReac Type Severity Reaction Status Date / Time ibuprofen Allergy Severe Rash Verified 07/02/22 07:46 Penicillins Allergy Severe Hives Verified 07/02/22 07:46 codeine Allergy Unknown Unknown Verified 07/02/22 07:46 Review of Systems Review of Systems: All systems reviewed & are unremarkable except as noted in HPI and below PMFSH Past Medical History Medical History Asthma Cellulitis Migraine Type 1 diabetes Social History Social History Smoking packs per day: 1 Smoking cigarettes per day: 20.0 Years smoked: 28 Smoking pack-years: 28.00 Smoking status: Current every day smoker Tobacco type: cigarettes and e-cigarettes/vaping Second hand tobacco smoke exposure: Yes Alcohol intake: unknown Substance use: current Substance use type: marijuana and methamphetamine Lack of Transportation: No Lack of Food: Never True Current Housing: I Have Housing Concerned About Future Housing: No Difficulty Paying Gas/Electric Bills: No Difficulty Paying for Meds: No Currently Unemployed: No Education: High School Diploma/GED Difficulty w/ Childcare or Family Care: No Living arrangements: with family Spiritual care concerns: No Exam Const: General: healthy appearing, no acute distress and alert Nutritional Appearance: well nourished Orientation/consciousness: patient oriented x3 Limitations: no limitations HENMT: Head: normal to inspection Ears: external ears normal Face/Nose/Sinus: Normal external nose present Face and sinus: normal facial exam Mouth: Yes Normal oral and palatal mucosa present Throat: posterior oropharynx normal Eyes: Conjunctivae: conjunctivae normal Pupils: Equal, round and reactive pupils present EOM: EOMs intact bilaterally Neck: Neck: normal visual inspection Resp: Effort & Inspection: normal respiratory effort Auscultation: clear to auscultation bilaterally Cardio: Rate: regular rate Rhythm: regular rhythm GI: GI Palp: Yes Soft to palpation and No Tenderness to palpation present (GI) Auscultation: normal bowel sounds Back/Spine/Pelvis: Cervical Spine: cervical ROM normal Thoracic/Lumbar Spine: thoraco-lumbar ROM normal Skin: General skin exam: normal color Lesions: lesion noted pustule left forearm size (3 cm X 2 diameter anterior wrist and dorsal proximal forearm), borders well-defined, color beefy, consistency firm and mobile; not fluctuant, morphology raised, surface crusted, peeling and warm and tender Rashes: no rashes Neuro: General: patient oriented x3, moves all extremities, no focal motor deficits and CN's II-XI intact bilaterally Speech: normal speech Gait exam (Neuro): Normal gait present Extrem: General: normal to inspection Psych: Mental Status: mental status grossly normal Affect: normal affect Attitude: cooperative Course Vital Signs Vital signs: Vital Signs Oxygen Delivery Room Air 07/02/22 07:35 Temperature 36.7 C 07/02/22 07:43 Pulse Rate 94 07/02/22 07:43 Respiratory Rate 18 07/02/22 07:43 Blood Pressure 145/98 H 07/02/22 07:43 Pulse Oximetry 98 07/02/22 07:43 Oxygen Delivery Room Air 07/02/22 07:43 MDM - Skin/Abscess/Foreign Bdy MDM Narrative Medical decision making narrative: milena
== END 2022-07-02 08:10 | disposition home or self-care (01) ==
PROVIDERS: Emergency Provider Emergency Medicine
DX: T63.301A Toxic effect of unspecified spider venom, accidental (unintentional), initial encounter (principal); J45.909 Unspecified asthma, uncomplicated; E11.9 Type 2 diabetes mellitus without complications; F17.210 Nicotine dependence, cigarettes, uncomplicated
CPT/HCPCS: 82948; 99283

== ENCOUNTER 2022-08-20 16:25 | Emergency (ER) | payer OTHER, SELFPAY ==
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
[2022-08-20 16:25] VITALS: BP 136/97; PULSE 96; RESP 20; TEMP 37; O2SAT 99
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
[2022-08-20 16:54] LABS: Glucose Point of Care 258 mg/dl (65-105)
[2022-08-20 17:40] VITALS: BP 138/88; PULSE 92; RESP 16; O2SAT 98
--- NOTE | 2022-08-20 18:27 | PC.NURSE ---
SEE PAPER DOCUMENT. PT IS SPEAKING WITH SIG OTHER AT THIS TIME. NAD NOTED. PT IS AWAITING RESULTS OF CT. WILL CONTINUE TO MONITOR.
[2022-08-20 19:04] VITALS: BP 127/88; PULSE 92; RESP 18; TEMP 37.1; O2SAT 99
--- NOTE | 2022-08-20 19:17 | PC.NURSE ---
Upon discharge, it was found that the pt left his hat in the exam room. Attempted to call pt cell phone as well as emergency contact with no answer to either. Pt sticker place on hat and placed in lost and found.
== END 2022-08-20 19:05 | disposition home or self-care (01) ==
LOC: CHSED 18:54
PROVIDERS: Emergency Provider Emergency Medicine; PCP Family Medicine
DX: S39.91XA Unspecified injury of abdomen, initial encounter (principal); L03.115 Cellulitis of right lower limb; F17.210 Nicotine dependence, cigarettes, uncomplicated; F17.290 Nicotine dependence, other tobacco product, uncomplicated; F12.90 Cannabis use, unspecified, uncomplicated; F15.90 Other stimulant use, unspecified, uncomplicated; Y35.893A Legal intervention involving other specified means, suspect injured, initial encounter; Z79.4 Long term (current) use of insulin; Z79.51 Long term (current) use of inhaled steroids
CPT/HCPCS: 74176; 82948; 99284

== ENCOUNTER 2022-08-22 17:39 | Emergency (ER) | payer OTHER, SELFPAY ==
[2022-08-22 17:43] VITALS: BP 135/81; PULSE 104; TEMP 36.6; O2SAT 97
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
== END 2022-08-22 18:14 | disposition home or self-care (01) ==
PROVIDERS: Emergency Provider Emergency Medicine; PCP Family Medicine
DX: Z76.0 Encounter for issue of repeat prescription (principal); E10.9 Type 1 diabetes mellitus without complications; J45.909 Unspecified asthma, uncomplicated; Z79.4 Long term (current) use of insulin; F17.210 Nicotine dependence, cigarettes, uncomplicated; F12.90 Cannabis use, unspecified, uncomplicated; F15.90 Other stimulant use, unspecified, uncomplicated; Z79.51 Long term (current) use of inhaled steroids
CPT/HCPCS: 99283

== ENCOUNTER 2023-01-05 12:37 | Emergency (ER) | payer OTHER, SELFPAY ==
[2023-01-05 12:37] VITALS: BP 143/77; PULSE 90; RESP 18; TEMP 36.9; O2SAT 95
--- NOTE | 2023-01-05 12:55 | ED.GENADULT ---
HPI - General Adult General Chief complaint: Unspecified Stated complaint: insect bites Time Seen by Provider: 01/05/23 12:42 Source: patient Mode of arrival: ambulatory Limitations: no limitations History of Present Illness HPI narrative: patient is a 37-year-old male who is currently in the process of substance abuse withdrawal program. He is here for multiple wound/insect bite it is around the body. He feels spider bites are a culprit. Onset (ago): day(s) (2) Location: genitals, upper extremity and lower extremity Radiation: non-radiation Severity: mild and moderate Severity scale (1-10): 4 Quality: burning Pain Consistency: constant Relieving factors: none Exacerbating factors: none Associated symptoms: denies other symptoms Treatments prior to arrival: none Related Data Allergies Allergy/AdvReac Type Severity Reaction Status Date / Time ibuprofen Allergy Severe Rash Verified 08/22/22 17:45 Penicillins Allergy Severe Hives Verified 08/22/22 17:45 codeine Allergy Unknown Unknown Verified 08/22/22 17:45 Review of Systems Review of Systems: All systems reviewed & are unremarkable except as noted in HPI and below Constitutional: Constitutional: Reports no additional constitutional complaints Eyes: Eyes: Reports no additional eye complaints ENT: Reports system reviewed and no additional complaints, except as documented Cardiovascular: Cardiovascular: Reports no additional cardiovascular complaints Respiratory: Respiratory: Reports no additional respiratory complaints Gastrointestinal: Gastrointestinal: Reports no additional gastrointestinal complaints Genitourinary: Genitourinary: Reports no additional male genitourinary complaints Musculoskeletal: Musculoskeletal: Reports no additional musculoskeletal complaints Integumentary/Breasts: Skin/Breast: Reports system reviewed and no additional complaints, except as docu Neurologic: Reports system reviewed and no additional complaints, except as documented Psychiatric: Psychiatric: Reports no additional psychiatric complaints Endocrine: Endocrine: Reports no additional endocrine complaints Hematologic/Lymphatic: Hematologic/Lymphatic: Reports no additional hematologic/lymphatic complaints Allergic/Immunologic: Allergic/Immunologic: Reports no additional allergic/immunologic complaints PMFSH Past Medical History Medical History Asthma Cellulitis Migraine Type 1 diabetes Social History Social History Smoking packs per day: 1 Smoking cigarettes per day: 20.0 Years smoked: 28 Smoking pack-years: 28.00 Smoking status: Current every day smoker Tobacco type: cigarettes and e-cigarettes/vaping Second hand tobacco smoke exposure: Yes Alcohol intake: unknown Substance use: current Substance use type: marijuana and methamphetamine Lack of Transportation: No Lack of Food: Never True Current Housing: I Have Housing Concerned About Future Housing: No Difficulty Paying Gas/Electric Bills: No Difficulty Paying for Meds: No Currently Unemployed: No Education: High School Diploma/GED Difficulty w/ Childcare or Family Care: No Living arrangements: with family Spiritual care concerns: No Exam Const: General: cooperative, healthy appearing and comfortable HENMT: Head: normal to inspection, No palpable skull fracture present and normocephalic Neck: Neck: normal visual inspection, full ROM and no lymphadenopathy Chest: Chest palpation & inspection: normal inspection of the chest and normal palpation of entire chest wall Resp: Effort & Inspection: normal respiratory effort, able to speak in complete sentences, no grunting and not labored Cardio: Jugular venous distension: no JVD Palpation: normal PMI Rate: regular rate Rhythm: regular rhythm Heart sounds: S1 normal heart sound present and S2 normal heart sound pr
[2023-01-05 13:00] LABS: Glucose Point of Care 152 mg/dl (65-105)
--- NOTE | 2023-01-05 13:13 | ED.GENADULT ---
HPI - General Adult General Chief complaint: Unspecified Stated complaint: insect bites Time Seen by Provider: 01/05/23 12:42 Source: patient Mode of arrival: ambulatory Limitations: no limitations History of Present Illness HPI narrative: patient is a 37-year-old male with insect bites around his body. Patient is currently in detoxification program. Patient is diabetic type 1. Tetanus shot up-to-date in the past 3 years. Onset (ago): day(s) (2) Location: genitals, upper extremity and lower extremity Radiation: non-radiation Severity: mild Severity scale (1-10): 4 Quality: burning Pain Consistency: constant Relieving factors: none Exacerbating factors: none Associated symptoms: denies other symptoms Treatments prior to arrival: none Related Data Allergies Allergy/AdvReac Type Severity Reaction Status Date / Time ibuprofen Allergy Severe Rash Verified 08/22/22 17:45 Penicillins Allergy Severe Hives Verified 08/22/22 17:45 codeine Allergy Unknown Unknown Verified 08/22/22 17:45 Review of Systems Respiratory: Respiratory: Reports no additional respiratory complaints Gastrointestinal: Gastrointestinal: Reports no additional gastrointestinal complaints Genitourinary: Genitourinary: Reports no additional male genitourinary complaints Musculoskeletal: Musculoskeletal: Reports no additional musculoskeletal complaints Integumentary/Breasts: Skin/Breast: Reports system reviewed and no additional complaints, except as docu Neurologic: Reports system reviewed and no additional complaints, except as documented Psychiatric: Psychiatric: Reports no additional psychiatric complaints Endocrine: Endocrine: Reports no additional endocrine complaints Hematologic/Lymphatic: Hematologic/Lymphatic: Reports no additional hematologic/lymphatic complaints Allergic/Immunologic: Allergic/Immunologic: Reports no additional allergic/immunologic complaints [facility] Past Medical History Medical History Asthma Cellulitis Migraine Type 1 diabetes Social History Social History Smoking packs per day: 1 Smoking cigarettes per day: 20.0 Years smoked: 28 Smoking pack-years: 28.00 Smoking status: Current every day smoker Tobacco type: cigarettes and e-cigarettes/vaping Second hand tobacco smoke exposure: Yes Alcohol intake: unknown Substance use: current Substance use type: marijuana and methamphetamine Lack of Transportation: No Lack of Food: Never True Current Housing: I Have Housing Concerned About Future Housing: No Difficulty Paying Gas/Electric Bills: No Difficulty Paying for Meds: No Currently Unemployed: No Education: High School Diploma/GED Difficulty w/ Childcare or Family Care: No Living arrangements: with family Spiritual care concerns: No Exam Const: General: cooperative, healthy appearing and comfortable HENMT: Head: normal to inspection, No palpable skull fracture present and normocephalic Eyes: General: appearance normal, both eyes and all related structures Visual Lopez: normal visual lopez by confrontation Alignment and Position: alignment normal Chest: Chest palpation & inspection: normal inspection of the chest, normal palpation of entire chest wall and normal inspection of the chest Resp: Effort & Inspection: normal respiratory effort, able to speak in complete sentences, normal respiratory pattern, no audible wheezes and no cough Cardio: Jugular venous distension: no JVD Palpation: normal PMI Rate: regular rate Rhythm: regular rhythm Heart sounds: S1 normal heart sound present and S2 normal heart sound present Bruits: no abdominal aortic bruits GI: Inspection: normal to inspection, no abdominal wall ecchymosis, no edema, non-distended and no incisions GI Palp: No abdominal tenderness Auscultation: normal bowel sounds Back/Spine/Pelvis: Back: no CVA tender
[2023-01-05 13:29] VITALS: BP 103/72; PULSE 80; RESP 20; TEMP 36.6; O2SAT 100
== END 2023-01-05 13:31 | disposition home or self-care (01) ==
LOC: CHSED 12:55
PROVIDERS: Emergency Provider Emergency Medicine; PCP Family Medicine
DX: T14.8XXA Other injury of unspecified body region, initial encounter (principal); W57.XXXA Bitten or stung by nonvenomous insect and other nonvenomous arthropods, initial encounter; E10.9 Type 1 diabetes mellitus without complications; J45.909 Unspecified asthma, uncomplicated; F17.210 Nicotine dependence, cigarettes, uncomplicated; F17.290 Nicotine dependence, other tobacco product, uncomplicated; F12.90 Cannabis use, unspecified, uncomplicated; F15.90 Other stimulant use, unspecified, uncomplicated; Z79.4 Long term (current) use of insulin
CPT/HCPCS: 82948; 99283

== ENCOUNTER 2023-07-20 10:25 | Emergency (ER) | payer OTHER, SELFPAY ==
[2023-07-20 10:25] VITALS: BP 154/91; PULSE 83; RESP 16; TEMP 36.1; O2SAT 100
[2023-07-20 10:42] LABS: Glucose Point of Care 314 mg/dl (65-105)
--- NOTE | 2023-07-20 10:43 | ED.GENADULT ---
HPI - General Adult General Chief complaint: Dental/Oral Stated complaint: toothache Time Seen by Provider: 07/20/23 10:31 History of Present Illness HPI narrative: The patient is a 37-year-old male with history of polysubstance abuse (meth and marijuana although the patient denies drug use), cigarette use, type 1 diabetes, with does not check his sugars regularly, migraine headaches, asthma, and seizure disorder. He has had several teeth pulled in the past. He presents with a 3 day history of right lower anterior dental pain, increasing in severity. He took Tylenol last night without relief. One episode of emesis yesterday but no fevers or chills. No abdominal pain or chest pain. No diarrhea. He has not seen a dentist. Related Data Allergies Allergy/AdvReac Type Severity Reaction Status Date / Time ibuprofen Allergy Severe Rash Verified 07/20/23 10:28 Penicillins Allergy Severe Hives Verified 07/20/23 10:28 codeine Allergy Unknown Unknown Verified 07/20/23 10:28 Review of Systems Review of Systems: All systems reviewed & are unremarkable except as noted in HPI and below Constitutional: Constitutional: Denies chills, Denies excessive sweating, Reports fatigue (from staying up last night due to dental pain), Denies fever(s) and Denies headache(s) Eyes: Eyes: Denies change in vision and Denies photophobia ENT: Denies dysphagia, Denies dizziness, Denies lip swelling, Denies nasal congestion, Denies sore throat and Denies tongue swelling Comments: no facial swelling. DENTAL PAIN noted. Cardiovascular: Cardiovascular: Denies chest pain, Denies syncope, Denies rapid heart rate and Denies dyspnea Respiratory: Respiratory: Denies cough, Denies dyspnea and Denies wheezing Gastrointestinal: Gastrointestinal: Denies abdominal pain, Denies constipation, Denies dysphagia, Denies diarrhea, Denies nausea and Denies vomiting Genitourinary: Genitourinary: Denies hematuria, Denies dysuria, Denies urinary frequency and Denies urinary urgency Musculoskeletal: Musculoskeletal: Denies back pain, Denies myalgias, Denies arthralgias, Denies joint swelling and Denies numbness Integumentary/Breasts: Skin/Breast: Denies pruritus Neurologic: Denies confusion, Denies syncope, Denies focal weakness and Denies numbness Psychiatric: Psychiatric: Denies anxiety and Denies confusion Endocrine: Endocrine: Denies excessive sweating Hematologic/Lymphatic: Hematologic/Lymphatic: Denies easy bleeding and Denies easy bruising Allergic/Immunologic: Allergic/Immunologic: Denies lip swelling and Denies tongue swelling PMFSH Past Medical History Medical History Asthma Cellulitis Migraine Type 1 diabetes Social History Social History Smoking packs per day: 1 Smoking cigarettes per day: 20.0 Years smoked: 28 Smoking pack-years: 28.00 Smoking status: Current every day smoker Tobacco type: cigarettes and e-cigarettes/vaping Second hand tobacco smoke exposure: Yes Alcohol intake: unknown Substance use: current Substance use type: marijuana and methamphetamine Lack of Transportation: No Lack of Food: Never True Current Housing: I Have Housing Concerned About Future Housing: No Difficulty Paying Gas/Electric Bills: No Difficulty Paying for Meds: No Currently Unemployed: No Education: High School Diploma/GED Difficulty w/ Childcare or Family Care: No Living arrangements: with family Spiritual care concerns: No Exam Const: General: healthy appearing, no acute distress, alert and well nourished Nutritional Appearance: well nourished Orientation/consciousness: patient oriented x3 Limitations: no limitations HENMT: Head: normal to inspection Ears: external ears normal Face/Nose/Sinus: normal facial exam Face and sinus: normal facial exam Mouth: Yes moist mucous membranes Teeth and gingiva:
[2023-07-20] MEDS: CLINDAMYCIN HCL 150 MG CAP 300 MG PO (10:46)
[2023-07-20] MEDS: ACETAMINOPHEN 325 MG TABLET 650 MG PO (10:47)
[2023-07-20] MEDS: HYDROcodone/acetaminophen (*CRX) 5-325 MG TABLET 1 TAB PO (10:47)
[2023-07-20] MEDS: INSULIN HUMAN REGULAR (*BKC) 1,000 UNITS/10 ML VIAL 8 UNITS SUB-Q (10:49)
== END 2023-07-20 10:59 | disposition home or self-care (01) ==
PROVIDERS: Emergency Provider Emergency Medicine; PCP Family Medicine
DX: K02.9 Dental caries, unspecified (principal); E10.65 Type 1 diabetes mellitus with hyperglycemia; G40.909 Epilepsy, unspecified, not intractable, without status epilepticus; J45.909 Unspecified asthma, uncomplicated; F17.210 Nicotine dependence, cigarettes, uncomplicated; F17.290 Nicotine dependence, other tobacco product, uncomplicated; F12.90 Cannabis use, unspecified, uncomplicated; F15.90 Other stimulant use, unspecified, uncomplicated; Z79.4 Long term (current) use of insulin
CPT/HCPCS: 82948; 99283; A9270; J1815

== ENCOUNTER 2023-08-21 16:40 | Emergency (ER) | payer OTHER, SELFPAY ==
[2023-08-21 16:40] VITALS: BP 126/91; PULSE 90; RESP 20; TEMP 36.9; O2SAT 97
[2023-08-21] MEDS: CLINDAMYCIN HCL 150 MG CAP 600 MG PO (16:57)
[2023-08-21 17:05] LABS: Basophils Absolute Auto 0.08 K/mm3 (0.00-0.10); Basophils Percent Auto 1.1 % (0.0-1.0); Eosinophils Absolute Auto 0.34 K/mm3 (0.02-0.50); Eosinophils Percent Auto 4.6 % (1.0-6.0); Hematocrit 37.3 % (40.0-54.0); Hemoglobin 11.9 g/dL (14.0-18.0); Immature Granulocyte Absolute 0.02 K/mm3 (0.00-0.00); Immature Granulocyte Percent A 0.3 % (0.0-0.0); Lymphocytes Percent Auto 24.6 % (18.0-42.0); Mean Corpuscular HGB Conc 31.9 g/dL (32-36); Mean Corpuscular Hemoglobin 28.5 pg (27.0-31.0); Mean Corpuscular Volume 89.4 fL (78.0-102.0); Mean Platelet Volume 9.9 fl (8.7-11.0); Monocytes Absolute Auto 0.68 K/mm3 (0.10-0.90); Monocytes Percent Auto 9.3 % (2.0-11.0); Neutrophils Absolute Auto 4.41 K/mm3 (1.70-7.20); Neutrophils Percent Auto 60.1 % (50.0-70.0); Platelet Count Result 320 K/mm3 (150-420); Red Blood Count 4.17 M/mm3 (4.70-6.10); Red Cell Distribution Width 12.8 % (11.6-14.4); White Blood Count 7.3 K/mm3 (4.8-10.8)
[2023-08-21 17:23] LABS: Alanine Aminotransferase 25 U/L (16-63); Albumin Level 3.4 g/dL (3.4-5.0); Alkaline Phosphatase 81 U/L (46-116); Anion Gap 6 mmol/L (4-12); Aspartate Amino Transferase 13 U/L (15-37); Bilirubin,Total 0.6 mg/dL (0.00-1.00); Blood Urea Nitrogen 15 mg/dL (7-18); Calcium 8.5 mg/dL (8.5-10.1); Carbon Dioxide 30 mmol/L (21-32); Chloride 103 mmol/L (98-108); Estimated CRCL calculation 92 ml/min; Estimated Glomerular Filt Rate > 60; Glucose 250 mg/dL (70-99); Osmolality Calculated 296 mOsm/kg (285-295); Potassium 4.2 mmol/L (3.5-5.1); Sodium 139 mmol/L (136-145); Total Protein 6.9 g/dL (6.4-8.2)
--- NOTE | 2023-08-21 17:47 | ED.SKABFB ---
HPI - Skin/Abscess/Foreign Bdy General Chief complaint: Skin/Abscess/Foreign Body Stated complaint: rash diffuse all over, mainly hands and feet Source: patient History of Present Illness HPI narrative: this is a 37-year-old male diabetic presents with some abscess on his lower extremities mainly on his left foot with an area of erythema there is currently no drainage no fluctuation no fever chills no nausea vomiting no abdominal pain no flank pain no dysuria no chest pain or shortness of breath. complaint: abscess/boil Onset (ago): day(s) Related Data Allergies Allergy/AdvReac Type Severity Reaction Status Date / Time ibuprofen Allergy Severe Rash Verified 07/20/23 10:28 Penicillins Allergy Severe Hives Verified 07/20/23 10:28 codeine Allergy Unknown Unknown Verified 07/20/23 10:28 Review of Systems Review of Systems: All systems reviewed & are unremarkable except as noted in HPI and below PMFSH Past Medical History Medical History Asthma Cellulitis Migraine Type 1 diabetes Social History Social History Smoking packs per day: 1 Smoking cigarettes per day: 20.0 Years smoked: 28 Smoking pack-years: 28.00 Smoking status: Current every day smoker Tobacco type: cigarettes and e-cigarettes/vaping Second hand tobacco smoke exposure: Yes Alcohol intake: unknown Substance use: current Substance use type: marijuana and methamphetamine Lack of Transportation: No Lack of Food: Never True Current Housing: I Have Housing Concerned About Future Housing: No Difficulty Paying Gas/Electric Bills: No Difficulty Paying for Meds: No Currently Unemployed: No Education: High School Diploma/GED Difficulty w/ Childcare or Family Care: No Living arrangements: with family Spiritual care concerns: No Exam Const: General: no acute distress Nutritional Appearance: well nourished Orientation/consciousness: patient oriented x3 Limitations: no limitations Resp: Effort & Inspection: normal respiratory effort Auscultation: clear to auscultation bilaterally Cardio: Rate: regular rate Rhythm: regular rhythm GI: GI Palp: Yes Soft to palpation Auscultation: normal bowel sounds Skin: Wounds: wounds noted Other: Abscess on his left foot with an area of erythema warmth and tenderness Neuro: General: patient oriented x3 and moves all extremities Cranial nerves: Yes Nystagmus not present Psych: Mental Status: mental status grossly normal Course Course Emergency Course: labs reviewed with patient and patient was given a dose of p.o. clindamycin. Vital Signs Vital signs: Vital Signs Temperature 36.9 C 08/21/23 16:40 Pulse Rate 90 08/21/23 16:40 Respiratory Rate 20 08/21/23 16:40 Blood Pressure 126/91 H 08/21/23 16:40 Pulse Oximetry 97 08/21/23 16:40 Oxygen Delivery Room Air 08/21/23 16:40 Temperature 36.9 C 08/21/23 16:40 Pulse Rate 90 08/21/23 16:40 Respiratory Rate 20 08/21/23 16:40 Blood Pressure 126/91 H 08/21/23 16:40 Pulse Oximetry 97 08/21/23 16:40 Oxygen Delivery Room Air 08/21/23 16:40 MDM - Skin/Abscess/Foreign Bdy Lab Data 08/21/23 16:50 08/21/23 16:50 Labs: Lab Results 08/21/23 Range/Units 16:50 WBC 7.3 (4.8-10.8) K/mm3 RBC 4.17 L (4.70-6.10) M/mm3 Hgb 11.9 L (14.0-18.0) g/dL Hct 37.3 L (40.0-54.0) % MCV 89.4 (78.0-102.0) fL MCH 28.5 (27.0-31.0) pg MCHC 31.9 L (32-36) g/dL RDW 12.8 (11.6-14.4) % Plt Count 320 (150-420) K/mm3 MPV 9.9 (8.7-11.0) fl Immature Gran % (Auto) 0.3 H (0.0-0.0) % Neut % (Auto) 60.1 (50.0-70.0) % Lymph % (Auto) 24.6 (18.0-42.0) % [place] % (Auto) 9.3 (2.0-11.0) % Eos % (Auto) 4.6 (1.0-6.0) % Baso % (Auto) 1.1 H (0.0-1.0) % Lymph # (Auto) 1.80 (1.10-4.50) K/mm3 [place] # (Auto) 0.68 (0.10-0.90)
[2023-08-21 18:01] VITALS: BP 142/87; PULSE 78; RESP 20; TEMP 37.2; O2SAT 99
== END 2023-08-21 18:01 | disposition home or self-care (01) ==
PROVIDERS: Emergency Provider Emergency Medicine; PCP Family Medicine
DX: L03.116 Cellulitis of left lower limb (principal); L02.612 Cutaneous abscess of left foot; E10.9 Type 1 diabetes mellitus without complications; J45.909 Unspecified asthma, uncomplicated; F17.210 Nicotine dependence, cigarettes, uncomplicated; F17.290 Nicotine dependence, other tobacco product, uncomplicated
CPT/HCPCS: 36415; 80053; 85025; 99283; A9270

== ENCOUNTER 2023-10-25 12:46 | Emergency (ER) | payer OTHER, SELFPAY ==
[2023-10-25 12:48] VITALS: BP 128/77; PULSE 94; RESP 18; TEMP 36.6; O2SAT 97
[2023-10-25 12:51] VITALS: BP 128/77; PULSE 94; RESP 18; TEMP 36.6; O2SAT 97
--- NOTE | 2023-10-25 12:55 | ED.GENADULT ---
HPI - General Adult General Chief complaint: Unspecified Stated complaint: blood sugar Time Seen by Provider: 10/25/23 12:54 Source: patient Mode of arrival: ambulatory Limitations: no limitations History of Present Illness HPI narrative: 37 years old white male came to the emergency room with his significant other by private car requesting refill Humalog pen. History of type 1 diabetes, run out of insulin last night. Patient fired his family physician recently, scheduled to see an television cabinet finisher November 11. Patient declined any blood workup at this time just a prescription for the insulin Related Data Allergies Allergy/AdvReac Type Severity Reaction Status Date / Time ibuprofen Allergy Severe Rash Verified 10/25/23 12:50 Penicillins Allergy Severe Hives Verified 10/25/23 12:50 codeine Allergy Unknown Unknown Verified 10/25/23 12:50 Review of Systems Review of Systems: All systems reviewed & are unremarkable except as noted in HPI and below PMFSH Past Medical History Medical History Asthma Cellulitis Migraine Type 1 diabetes Social History Social History Smoking packs per day: 1 Smoking cigarettes per day: 20.0 Years smoked: 28 Smoking pack-years: 28.00 Smoking status: Current every day smoker Tobacco type: cigarettes and e-cigarettes/vaping Second hand tobacco smoke exposure: Yes Alcohol intake: unknown Substance use: current Substance use type: marijuana and methamphetamine Lack of Transportation: No Lack of Food: Never True Current Housing: I Have Housing Concerned About Future Housing: No Difficulty Paying Gas/Electric Bills: No Difficulty Paying for Meds: No Currently Unemployed: No Education: High School Diploma/GED Difficulty w/ Childcare or Family Care: No Living arrangements: with family Spiritual care concerns: No Exam Narrative: General appearance: Well-developed, well-nourished Skin: Normal color Head: Normocephalic, nontraumatic Eyes: Clear conjunctiva ENT: Oropharynx normal, ears normal, nose normal Neck: Supple, nontender Chest and respiratory: Airway patent, no respiratory distress, no accessory muscle use Heart: Regular rate/rhythm Abdomen: Soft, nontender, no organomegaly, quiet bowel sounds Vascular: Normal peripheral pulses, normal capillary refill. 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, no gross motor deficit Course Vital Signs Vital signs: Vital Signs Temperature 36.6 C 10/25/23 12:48 Pulse Rate 94 10/25/23 12:48 Respiratory Rate 18 10/25/23 12:48 Blood Pressure 128/77 10/25/23 12:48 Pulse Oximetry 97 10/25/23 12:48 Oxygen Delivery Room Air 10/25/23 12:48 Temperature 36.6 C 10/25/23 12:51 Pulse Rate 94 10/25/23 12:51 Respiratory Rate 18 10/25/23 12:56 Blood Pressure 128/77 10/25/23 12:51 Pulse Oximetry 97 10/25/23 12:51 Oxygen Delivery Room Air 10/25/23 12:51 Medical Decision Making MDM Narrative Medical decision making narrative: I believe patient is noncompliant with doctor's follow-up or his medications, Patient requested a refill for insulin, declined any blood workup at this time. A refill for Humalog pen 100 unit/mL was prescribed sent to his pharmacy. Vital Signs Vital Signs: Vital Signs Temperature 36.6 C 10/25/23 12:48 Pulse Rate 94 10/25/23 12:48 Respiratory Rate 18 10/25/23 12:48 Blood Pressure 128/77 10/25/23 12:48 Pulse Oximetry 97 10/25/23 12:48 Oxygen Delivery Room Air 10/24
[2023-10-25 12:56] VITALS: RESP 18
== END 2023-10-25 13:04 | disposition home or self-care (01) ==
LOC: CHSED 13:06
PROVIDERS: Emergency Provider Emergency Medicine
DX: E10.9 Type 1 diabetes mellitus without complications (principal); Z76.0 Encounter for issue of repeat prescription; F17.210 Nicotine dependence, cigarettes, uncomplicated; Z79.4 Long term (current) use of insulin
CPT/HCPCS: 99283